=== PATIENT | female | born 1990 | race Caucasian/White ===

== ENCOUNTER → 2017-07-17 | Outpatient (CLI) | payer SELFPAY ==
[2017-07-17 14:32] LABS: BASO # 0.1 10^3/uL (0.0-0.2); BASO % 0.6 % (0.0-1.0); EOS % 0.5 % (0.0-3.0); IMMATURE GRANULOCYTE % 0.4 % (0-0); LYMPH # 1.8 10^3/uL (1.5-6.5); LYMPH % 22.8 % (24.0-44.0); MEAN CORPUSCULAR HEMOGLOBIN 33.6 pg (27.0-33.0); MEAN CORPUSCULAR HGB CONC 35.3 g/dl (32.0-36.5); MEAN CORPUSCULAR VOLUME 95.1 fl (80.0-96.0); MONO # 0.5 10^3/uL (0.0-0.8); MONO % 5.9 % (0.0-5.0); NEUTROPHILS # 5.4 10^3/uL (1.8-7.7); NEUTROPHILS % 69.8 % (36.0-66.0); PLATELET COUNT, AUTOMATED 225 10^3/uL (150-450); RED CELL DISTRIBUTION WIDTH 13.1 % (11.5-14.5); WHITE BLOOD COUNT 7.8 10^3/uL (4.0-10.0)
[2017-07-17 15:07] LABS: ALBUMIN 4.1 GM/DL (3.2-5.2); ALBUMIN/GLOBULIN RATIO 1.24 (1.00-1.93); ALKALINE PHOSPHATASE 48 U/L (45-117); ALT/SGPT 14 U/L (12-78); ANION GAP 6 MEQ/L (8-16); AST/SGOT 9 U/L (7-37); BILIRUBIN,TOTAL 0.6 MG/DL (0.2-1.0); BLOOD UREA NITROGEN 10 MG/DL (7-18); CALCIUM LEVEL 9.3 MG/DL (8.5-10.1); CARBON DIOXIDE LEVEL 28 MEQ/L (21-32); CHLORIDE LEVEL 104 MEQ/L (98-107); CREATININE FOR GFR 0.75 MG/DL (0.55-1.02); FREE T4 0.93 NG/DL (0.76-1.46); GLOMERULAR FILTRATION RATE > 60.0 (>60); GLUCOSE, FASTING 87 MG/DL (70-105); POTASSIUM SERUM 4.1 MEQ/L (3.5-5.1); SODIUM LEVEL 138 MEQ/L (136-145); TOTAL PROTEIN 7.4 GM/DL (6.4-8.2)
[2017-07-22 00:06] LABS: ARSENIC BLOOD 4 ug/L (2-23); LEAD BLOOD None Detected ug/dL (0-19); MERCURY BLOOD None Detected ug/L (0.0-14.9)
== END ==
LOC: M LAB 13:48
PROVIDERS: ATTEND Physician Assistant
DX: M54.5 Low back pain (principal)

== ENCOUNTER → 2020-08-24 | Outpatient (REF) | payer OTHER, SELFPAY ==
[2020-08-25 12:56] LABS: INFLUENZA A AMPLIFICATION NEGATIVE (NEGATIVE); INFLUENZA B AMPLIFICATION NEGATIVE (NEGATIVE)
== END ==
LOC: M LAB REF 09:55
PROVIDERS: ATTEND Physician Assistant
DX: R19.7 Diarrhea, unspecified (principal); J11.1 Influenza due to unidentified influenza virus with other respiratory manifestations; R53.83 Other fatigue; R11.0 Nausea
CPT/HCPCS: 87502; U0003

== ENCOUNTER 2023-01-21 13:47 | Inpatient (IN) | payer OTHER, SELFPAY ==
[~2023-01-21] VITALS: Ht 162.6 cm; Wt 73.8 kg
[2023-01-21] MEDS ORDERED: NORA0.35 PO (14:02)
[2023-01-21] MEDS ORDERED: LANTINJ4 SC (14:05)
[2023-01-21] MEDS ORDERED: NOVOINJ3 SC (14:05)
[2023-01-21 14:52] LABS: BASO % 0.5 % (0.0-1.0); EOS % 0.3 % (0.0-3.0); HEMOGLOBIN 14.6 g/dl (12.0-15.5); LYMPH # 0.8 10^3/uL (1.5-5.0); LYMPH % 10.7 % (24.0-44.0); MEAN CORPUSCULAR HEMOGLOBIN 36.4 pg (27.0-33.0); MEAN CORPUSCULAR HGB CONC 36.5 g/dl (32.0-36.5); MEAN CORPUSCULAR VOLUME 99.8 fl (80.0-96.0); MONO # 0.5 10^3/uL (0.0-0.8); MONO % 7.2 % (2.0-8.0); NEUTROPHILS % 80.9 % (36.0-66.0); PLATELET COUNT, AUTOMATED 154 10^3/uL (150-450); RED BLOOD COUNT 4.01 10^6/uL (4.00-5.40); WHITE BLOOD COUNT 7.4 10^3/uL (4.0-10.0)
[2023-01-21 15:16] LABS: ALBUMIN 4.4 G/DL (3.2-5.2); ALKALINE PHOSPHATASE 84 U/L (46-116); ALT/SGPT 76 U/L (7.0-40); AST/SGOT 172 U/L (<34); BILIRUBIN,DIRECT 0.4 MG/DL (<0.4); BILIRUBIN,TOTAL 1.3 MG/DL (0.3-1.2); BLOOD UREA NITROGEN 7 MG/DL (9-23); CALCIUM LEVEL 9.6 MG/DL (8.5-10.1); CARBON DIOXIDE LEVEL 24 MMOL/L (20-31); CHLORIDE LEVEL 98 MMOL/L (98-107); CREATININE FOR GFR 0.64 MG/DL (0.55-1.30); GLOMERULAR FILTRATION RATE > 60.0 (>60); GLUCOSE, FASTING 86 MG/DL (60-100); MAGNESIUM LEVEL 1.5 MG/DL (1.8-2.4); PHOSPHORUS LEVEL 1.8 MG/DL (2.5-4.9); POTASSIUM SERUM 4.2 MMOL/L (3.5-5.1); SODIUM LEVEL 133 MMOL/L (136-145); TOTAL PROTEIN 7.3 G/DL (5.7-8.2)
[2023-01-21] MEDS: fentaNYL 100 MCG/2 ML INJECTION IV PRN ×2 (15:26→18:31)
[2023-01-21 15:35] LABS: HCG, SERUM QUALITATIVE NEGATIVE (NEGATIVE)
[2023-01-21 15:37] LABS: AMPHETAMINES LEVEL URINE NEGATIVE (NEGATIVE); BARBITURATES URINE NEGATIVE (NEGATIVE); BENZODIAZEPINES URINE NEGATIVE (NEGATIVE); CANNABINOIDS URINE NEGATIVE (NEGATIVE); COCAINE METABOLITE URINE NEGATIVE (NEGATIVE); METHADONE URINE NEGATIVE (NEGATIVE); OPIATES URINE NEGATIVE (NEGATIVE); PHENCYCLIDINE URINE NEGATIVE (NEGATIVE)
[2023-01-21 15:38] LABS: CPK CREATINE PHOSPHOKINASE 254 U/L (34-145)
[2023-01-21 16:03] LABS: ETHYL ALCOHOL (ETHANOL) < 0.003 % (0.000-0.010)
[2023-01-21] MEDS: LORazepam 2 MG TAB PO PRN (16:04)
[2023-01-21] MEDS ORDERED: MAG SULF 1GM/100ML (MAG RUN) 1 GM in IV 1 EA IV ONE (16:15)
[2023-01-21] MEDS ORDERED: LORazepam 2 MG/ML 1ML VIAL IV STA (16:29)
[2023-01-21] MEDS ORDERED: GLUCAGON INJ 1MG VIAL SC PRN (17:05)
[2023-01-21] MEDS ORDERED: DEXTROSE 50% 50ML SYRINGE IV PRN (17:05)
[2023-01-21] MEDS ORDERED: GLUCOSE 4GM CHEW TABLET PO PRN (17:05)
[2023-01-21] MEDS ORDERED: ACET-897 PO (17:31)
[2023-01-21] MEDS ORDERED: HOME MED LIST COMPLETE! XX SCH (17:35)
[2023-01-21] MEDS: INSULIN LISPRO (NovoLOG) PER UNIT SC SCH (18:30)
[2023-01-21 19:23] LABS: RSV AMPLIFICATION NEGATIVE (NEGATIVE)
[2023-01-21] MEDS ORDERED: ACETAMINOPHEN 500 MG TAB PO ONE (23:25)
[2023-01-21] MEDS ORDERED: CYCLOBENZAPRINE 5MG TABLET PO ONE (23:25)
[2023-01-22] MEDS: INSULIN LISPRO (NovoLOG) PER UNIT SC SCH ×5 (00:30→21:00)
[2023-01-22] MEDS ORDERED: LIDOCAINE 5% (LIDODERM) PATCH TD ONE (01:00)
[2023-01-22] MEDS: THIAMINE 100 MG TAB PO SCH ×3 (01:21→20:34)
[2023-01-22] MEDS: OXAZEPAM 10MG CAP PO SCH ×3 (06:00→21:54)
[2023-01-22 06:11] LABS: HEMATOCRIT 38.9 % (36.0-47.0); HEMOGLOBIN 13.7 g/dl (12.0-15.5); MEAN CORPUSCULAR HEMOGLOBIN 36.2 pg (27.0-33.0); MEAN CORPUSCULAR HGB CONC 35.2 g/dl (32.0-36.5); MEAN CORPUSCULAR VOLUME 102.9 fl (80.0-96.0); PLATELET COUNT, AUTOMATED 125 10^3/uL (150-450); RED BLOOD COUNT 3.78 10^6/uL (4.00-5.40); WHITE BLOOD COUNT 4.8 10^3/uL (4.0-10.0)
[2023-01-22 06:46] LABS: ALBUMIN 3.6 G/DL (3.2-5.2); ALKALINE PHOSPHATASE 83 U/L (46-116); ALT/SGPT 71 U/L (7.0-40); AST/SGOT 176 U/L (<34); BILIRUBIN,TOTAL 2.1 MG/DL (0.3-1.2); BLOOD UREA NITROGEN 7 MG/DL (9-23); CALCIUM LEVEL 9.2 MG/DL (8.5-10.1); CARBON DIOXIDE LEVEL 26 MMOL/L (20-31); CHLORIDE LEVEL 100 MMOL/L (98-107); CREATININE FOR GFR 0.73 MG/DL (0.55-1.30); GLOMERULAR FILTRATION RATE > 60.0 (>60); GLUCOSE, FASTING 131 MG/DL (60-100); MAGNESIUM LEVEL 1.8 MG/DL (1.8-2.4); SODIUM LEVEL 135 MMOL/L (136-145); TOTAL PROTEIN 6.5 G/DL (5.7-8.2)
[2023-01-22] MEDS ORDERED: FOLIC ACID 1MG TAB PO SCH (09:00)
[2023-01-22] MEDS ORDERED: MULTIVITAMINS/MINERALS THERAP 1 TAB PO SCH (09:00)
[2023-01-22] MEDS: LORazepam 2 MG TAB PO PRN (10:04)
[2023-01-22] MEDS: NS 1,000 ML IV SCH ×2 (10:05→16:41)
[2023-01-22 12:55] VITALS: BP 138/70
[2023-01-22] MEDS ORDERED: LORazepam 1 MG TAB PO PRN (13:00)
[2023-01-22 13:19] VITALS: BP 138/70
[2023-01-22 16:37] VITALS: BP 145/88
[2023-01-22] MEDS: PERCOCET 5MG/325MG TAB PO PRN ×2 (16:42→20:34)
[2023-01-22 19:35] VITALS: BP 141/74
[2023-01-22 20:32] VITALS: BP 141/74
[2023-01-23] MEDS: PERCOCET 5MG/325MG TAB PO PRN ×3 (00:32→09:16)
[2023-01-23 00:34] VITALS: BP 143/65
[2023-01-23 05:09] VITALS: BP 136/87
[2023-01-23] MEDS: OXAZEPAM 10MG CAP PO SCH (05:13)
[2023-01-23] MEDS: NS 1,000 ML IV SCH (05:14)
[2023-01-23 05:21] VITALS: BP 136/87
[2023-01-23 07:37] LABS: HEMATOCRIT 35.1 % (36.0-47.0); HEMOGLOBIN 12.4 g/dl (12.0-15.5); MEAN CORPUSCULAR HEMOGLOBIN 36.6 pg (27.0-33.0); MEAN CORPUSCULAR HGB CONC 35.3 g/dl (32.0-36.5); MEAN CORPUSCULAR VOLUME 103.5 fl (80.0-96.0); PLATELET COUNT, AUTOMATED 104 10^3/uL (150-450); RED BLOOD COUNT 3.39 10^6/uL (4.00-5.40); WHITE BLOOD COUNT 3.4 10^3/uL (4.0-10.0)
[2023-01-23 08:00] VITALS: BP 154/95
[2023-01-23 08:19] LABS: ALBUMIN 3.3 G/DL (3.2-5.2); ALKALINE PHOSPHATASE 74 U/L (46-116); ALT/SGPT 73 U/L (7.0-40); AST/SGOT 162 U/L (<34); BILIRUBIN,TOTAL 1.4 MG/DL (0.3-1.2); BLOOD UREA NITROGEN 6 MG/DL (9-23); CALCIUM LEVEL 8.1 MG/DL (8.5-10.1); CARBON DIOXIDE LEVEL 22 MMOL/L (20-31); CHLORIDE LEVEL 104 MMOL/L (98-107); CREATININE FOR GFR 0.65 MG/DL (0.55-1.30); GLOMERULAR FILTRATION RATE > 60.0 (>60); GLUCOSE, FASTING 141 MG/DL (60-100); SODIUM LEVEL 137 MMOL/L (136-145); TOTAL PROTEIN 5.9 G/DL (5.7-8.2)
[2023-01-23] MEDS: INSULIN LISPRO (NovoLOG) PER UNIT SC SCH (08:25)
[2023-01-23] MEDS: THIAMINE 100 MG TAB PO SCH (08:25)
[2023-01-23] MEDS ORDERED: MULTIVITAMINS/MINERALS THERAP 1 TAB PO SCH (09:00)
[2023-01-23] MEDS ORDERED: FOLIC ACID 1MG TAB PO SCH (09:00)
[2023-01-23] MEDS ORDERED: CEFDINIR 300 MG CAP (OMNICEF) PO SCH (09:00)
[2023-01-23] MEDS ORDERED: CEFD300CAP PO (10:27)
[2023-01-23] MEDS ORDERED: VITMTA PO (10:27)
[2023-01-23] MEDS ORDERED: THIA100TA PO (10:27)
[2023-01-23] MEDS ORDERED: FOLI1TAB11 PO (10:27)
== END 2023-01-23 10:51 | disposition home or self-care (01) | DRG 897 ==
LOC: M ED 13:47 → EDBD 13:47 → M ED INP 17:05 → ENRESERV 01-22 11:07 → M MS4PR 01-22 12:50
PROVIDERS: ADMIT Internal Medicine; ATTEND Internal Medicine
DX: F10.139 Alcohol abuse with withdrawal, unspecified (principal); N39.0 Urinary tract infection, site not specified; R56.9 Unspecified convulsions; E11.9 Type 2 diabetes mellitus without complications; F43.10 Post-traumatic stress disorder, unspecified; R74.01 Elevation of levels of liver transaminase levels; E83.42 Hypomagnesemia; E87.6 Hypokalemia; Z79.4 Long term (current) use of insulin; Z79.899 Other long term (current) drug therapy; Z88.6 Allergy status to analgesic agent

== ENCOUNTER 2023-04-27 16:51 | Emergency (ER) | payer OTHER ==
[~2023-04-27] VITALS: Ht 160 cm; Wt 76.0 kg
[~2023-04-27 16:51] MED LIST: ACET-897 PO; CEFD300CAP PO; FOLI1TAB11 PO; LANTINJ4 SC; NORA0.35 PO; NOVOINJ3 SC; THIA100TA PO; VITMTA PO
[2023-04-27 19:52] LABS: BASO % 0.8 % (0.0-1.0); EOS # 0.1 10^3/uL (0.0-0.5); EOS % 1.9 % (0.0-3.0); HEMATOCRIT 43.4 % (36.0-47.0); HEMOGLOBIN 15.6 g/dl (12.0-15.5); LYMPH % 19.8 % (24.0-44.0); MEAN CORPUSCULAR HEMOGLOBIN 36.6 pg (27.0-33.0); MEAN CORPUSCULAR HGB CONC 35.9 g/dl (32.0-36.5); MEAN CORPUSCULAR VOLUME 101.9 fl (80.0-96.0); MONO # 0.4 10^3/uL (0.0-0.8); MONO % 8.3 % (2.0-8.0); NEUTROPHILS # 3.6 10^3/uL (1.5-8.5); PLATELET COUNT, AUTOMATED 140 10^3/uL (150-450); RED BLOOD COUNT 4.26 10^6/uL (4.00-5.40); WHITE BLOOD COUNT 5.2 10^3/uL (4.0-10.0)
[2023-04-27] MEDS ORDERED: fentaNYL 100 MCG/2 ML INJECTION IV ONE ×2 (19:55→21:25)
[2023-04-27] MEDS ORDERED: NS 1,000 ML IV ONE (19:55)
[2023-04-27 20:08] LABS: HCG, SERUM QUALITATIVE NEGATIVE (NEGATIVE)
[2023-04-27 20:19] LABS: LIPASE 49 U/L (12-53)
[2023-04-27 20:21] LABS: ALBUMIN 4.3 G/DL (3.2-5.2); ALKALINE PHOSPHATASE 106 U/L (46-116); ALT/SGPT 130 U/L (7.0-40); AST/SGOT 114 U/L (<34); BILIRUBIN,DIRECT 0.9 MG/DL (<0.4); BILIRUBIN,TOTAL 2.5 MG/DL (0.3-1.2); BLOOD UREA NITROGEN 8 MG/DL (9-23); CALCIUM LEVEL 9.3 MG/DL (8.5-10.1); CARBON DIOXIDE LEVEL 23 MMOL/L (20-31); CHLORIDE LEVEL 99 MMOL/L (98-107); CREATININE FOR GFR 0.59 MG/DL (0.55-1.30); GLOMERULAR FILTRATION RATE > 60.0 (>60); GLUCOSE, FASTING 258 MG/DL (60-100); POTASSIUM SERUM 4.3 MMOL/L (3.5-5.1); SODIUM LEVEL 134 MMOL/L (136-145); TOTAL PROTEIN 7.5 G/DL (5.7-8.2)
[2023-04-27 23:02] VITALS: TEMP 98.9
[2023-04-27] MEDS ORDERED: NORCO, ANEXSIA 5/325MG TABLET (HYDROcodone/ACETAMINOPHEN) PO ONE (23:15)
[2023-04-27] MEDS ORDERED: BACTRIM 160MG/800MG DS TAB PO ONE (23:15)
[2023-04-27] MEDS ORDERED: HYDR-3713 PO (23:18)
[2023-04-27] MEDS ORDERED: BACT800T5 PO (23:18)
[2023-04-27] MEDS ORDERED: ONDA4TAB6 PO (23:18)
[2023-04-28 00:12] VITALS: BP 157/87; O2SAT 98
== END 2023-04-28 00:15 | disposition home or self-care (01) ==
LOC: M ED 16:51
DX: K86.1 Other chronic pancreatitis (principal); N39.0 Urinary tract infection, site not specified; M54.50 Low back pain, unspecified; F43.10 Post-traumatic stress disorder, unspecified; E11.9 Type 2 diabetes mellitus without complications; I10 Essential (primary) hypertension; G40.909 Epilepsy, unspecified, not intractable, without status epilepticus; K21.9 Gastro-esophageal reflux disease without esophagitis; F10.10 Alcohol abuse, uncomplicated; Z88.6 Allergy status to analgesic agent; Z79.4 Long term (current) use of insulin; Z79.83 Long term (current) use of bisphosphonates; Z79.899 Other long term (current) drug therapy
CPT/HCPCS: 74176; 76705; 80048; 80076; 81001; 83690; 84703; 85025; 87088; 87186; 96361; 96374; 96375; 99284; J3010

== ENCOUNTER 2023-04-30 15:37 | Inpatient (IN) | payer OTHER ==
[~2023-04-30] VITALS: Ht 160 cm; Wt 78.5 kg
[~2023-04-30 15:37] MED LIST changes: +BACT800T5 PO; +HYDR-3713 PO; +ONDA4TAB6 PO
[2023-04-30 17:09] LABS: BASO # 0.1 10^3/uL (0.0-0.2); BASO % 0.6 % (0.0-1.0); EOS # 0.1 10^3/uL (0.0-0.5); EOS % 1.3 % (0.0-3.0); HEMATOCRIT 44.8 % (36.0-47.0); HEMOGLOBIN 15.9 g/dl (12.0-15.5); LYMPH # 1.1 10^3/uL (1.5-5.0); MEAN CORPUSCULAR HEMOGLOBIN 36.6 pg (27.0-33.0); MEAN CORPUSCULAR HGB CONC 35.5 g/dl (32.0-36.5); MONO % 12.8 % (2.0-8.0); NEUTROPHILS # 5.5 10^3/uL (1.5-8.5); NEUTROPHILS % 70.9 % (36.0-66.0); PLATELET COUNT, AUTOMATED 154 10^3/uL (150-450); RED BLOOD COUNT 4.35 10^6/uL (4.00-5.40); WHITE BLOOD COUNT 7.7 10^3/uL (4.0-10.0)
[2023-04-30 17:28] LABS: LIPASE 40 U/L (12-53)
[2023-04-30 17:37] LABS: ALBUMIN 4.5 G/DL (3.2-5.2); ALKALINE PHOSPHATASE 106 U/L (46-116); ALT/SGPT 76 U/L (7.0-40); AST/SGOT 45 U/L (<34); BILIRUBIN,DIRECT 0.5 MG/DL (<0.4); BILIRUBIN,TOTAL 1.1 MG/DL (0.3-1.2); BLOOD UREA NITROGEN 7 MG/DL (9-23); CALCIUM LEVEL 10.1 MG/DL (8.5-10.1); CARBON DIOXIDE LEVEL 17 MMOL/L (20-31); CHLORIDE LEVEL 98 MMOL/L (98-107); CREATININE FOR GFR 0.57 MG/DL (0.55-1.30); GLOMERULAR FILTRATION RATE > 60.0 (>60); GLUCOSE, FASTING 141 MG/DL (60-100); POTASSIUM SERUM 3.5 MMOL/L (3.5-5.1); SODIUM LEVEL 135 MMOL/L (136-145)
[2023-04-30] MEDS ORDERED: ONDANSETRON 4MG 2ML VIAL IV ONE (18:45)
[2023-04-30] MEDS ORDERED: NS 1,000 ML IV ONE (18:45)
[2023-04-30] MEDS ORDERED: PANTOPRAZOLE 40MG VIAL IV ONE (18:45)
[2023-04-30] MEDS ORDERED: fentaNYL 100 MCG/2 ML INJECTION IV PRN (18:45)
[2023-04-30 19:13] LABS: VENOUS BASE EXCESS -7.1 (-2.0-2.0); VENOUS HCO3 17.3 MMOL/L (23.0-27.0); VENOUS O2 SATURATION 79.9 % (60.0-80.0); VENOUS PARTIAL PRESSURE CO2 32.4 mmHg (38.0-50.0); VENOUS PARTIAL PRESSURE O2 44.2 mmHg (30.0-50.0); VENOUS PH 7.345 UNITS (7.330-7.430); VENOUS STANDARD HCO3 18.4 MMOL/L; VENOUS TOTAL CO2 18.3 MMOL/L (24.0-28.0)
[2023-04-30 19:52] LABS: HCG, SERUM QUALITATIVE NEGATIVE (NEGATIVE)
[2023-04-30] MEDS ORDERED: ISOVUE-370 76% 100ML VIAL As Ordered ONE (19:57)
[2023-04-30] MEDS: HYDROMORPHONE HCL 0.5 MG/ 0.5 ML SYRINGE IV PRN ×2 (20:17→22:56)
[2023-05-01] VITALS (12 sets, daily range): BP systolic 129–164; BP diastolic 62–80; TEMP 97.3–98.6; O2SAT 95–100
[2023-05-01] MEDS ORDERED: LR 1,000 ML IV SCH (00:35)
[2023-05-01] MEDS ORDERED: ONDANSETRON 4MG 2ML VIAL IV PRN (00:40)
[2023-05-01] MEDS ORDERED: GLUCAGON INJ 1MG VIAL SC PRN (00:40)
[2023-05-01] MEDS ORDERED: DEXTROSE 50% 50ML SYRINGE IV PRN (00:40)
[2023-05-01] MEDS ORDERED: GLUCOSE 4GM CHEW TABLET PO PRN (00:40)
[2023-05-01 00:49] LABS: RSV AMPLIFICATION NEGATIVE (NEGATIVE)
[2023-05-01] MEDS: HYDROMORPHONE HCL 0.5 MG/ 0.5 ML SYRINGE IV PRN ×8 (01:11→22:02)
[2023-05-01] MEDS ORDERED: LORazepam 2 MG/ML 1ML VIAL IV PRN (02:15)
[2023-05-01] MEDS ORDERED: INSU100I36 SC (02:38)
[2023-05-01] MEDS: LR 1,000 ML IV SCH ×3 (02:58→17:17)
[2023-05-01] MEDS ORDERED: MORPHINE 4 MG/ML 1ML VIAL IV ONE ×3 (03:00→20:55)
[2023-05-01] MEDS ORDERED: HYDR-4571 PO (03:16)
[2023-05-01] MEDS ORDERED: ONDA4TAB6 PO (03:16)
[2023-05-01] MEDS ORDERED: CYCL-707 PO (03:16)
[2023-05-01] MEDS ORDERED: BACT800T5 PO (03:16)
[2023-05-01] MEDS ORDERED: LISI10TA22 PO (03:27)
[2023-05-01] MEDS ORDERED: GLUT40GE PO (03:27)
[2023-05-01] MEDS ORDERED: REFR0.5D8 OU (03:27)
[2023-05-01] MEDS ORDERED: ATOR1TAB21 PO (03:27)
[2023-05-01] MEDS ORDERED: NORA0.35 PO (03:27)
[2023-05-01] MEDS ORDERED: HOME MED LIST COMPLETE! XX SCH (03:30)
[2023-05-01 04:15] LABS: BASO % 0.7 % (0.0-1.0); EOS # 0.2 10^3/uL (0.0-0.5); HEMATOCRIT 36.8 % (36.0-47.0); LYMPH # 1.3 10^3/uL (1.5-5.0); LYMPH % 24.1 % (24.0-44.0); MEAN CORPUSCULAR HEMOGLOBIN 36.9 pg (27.0-33.0); MEAN CORPUSCULAR HGB CONC 36.1 g/dl (32.0-36.5); MEAN CORPUSCULAR VOLUME 102.2 fl (80.0-96.0); MONO # 0.8 10^3/uL (0.0-0.8); MONO % 15.6 % (2.0-8.0); NEUTROPHILS % 56.2 % (36.0-66.0); PLATELET COUNT, AUTOMATED 125 10^3/uL (150-450); WHITE BLOOD COUNT 5.4 10^3/uL (4.0-10.0)
[2023-05-01 04:26] LABS: HEMOGLOBIN 13.3 g/dl (12.0-15.5)
[2023-05-01 04:43] LABS: ALBUMIN 3.6 G/DL (3.2-5.2); ALKALINE PHOSPHATASE 80 U/L (46-116); ALT/SGPT 58 U/L (7.0-40); AST/SGOT 33 U/L (<34); BLOOD UREA NITROGEN 7 MG/DL (9-23); CALCIUM LEVEL 9.2 MG/DL (8.5-10.1); CARBON DIOXIDE LEVEL 23 MMOL/L (20-31); CHLORIDE LEVEL 103 MMOL/L (98-107); GLOMERULAR FILTRATION RATE > 60.0 (>60); GLUCOSE, FASTING 147 MG/DL (60-100); POTASSIUM SERUM 3.5 MMOL/L (3.5-5.1); SODIUM LEVEL 136 MMOL/L (136-145); TOTAL PROTEIN 6.5 G/DL (5.7-8.2)
[2023-05-01] MEDS: INSULIN LISPRO (NovoLOG) PER UNIT SC SCH ×3 (06:00→17:17)
[2023-05-01] MEDS: PANTOPRAZOLE 40MG VIAL IV SCH ×2 (09:03→21:15)
[2023-05-01] MEDS: THIAMINE 200MG 2ML VIAL IM SCH (09:04)
[2023-05-01] MEDS: LEVEMIR (INSULIN DETEMIR) 1 UNITS/0.01ML SC SCH (09:04)
[2023-05-01] MEDS ORDERED: cefTRIAXone SOD 1 GM in D5W MINI-BAG PLUS 50 ML IV SCH (12:00)
[2023-05-02] VITALS (9 sets, daily range): BP systolic 128–157; BP diastolic 71–98; TEMP 96.6–98; O2SAT 93–97
[2023-05-02] MEDS: LR 1,000 ML IV SCH ×2 (01:06→09:01)
[2023-05-02] MEDS: HYDROMORPHONE HCL 0.5 MG/ 0.5 ML SYRINGE IV PRN ×8 (01:10→23:12)
[2023-05-02 05:45] LABS: EOS # 0.2 10^3/uL (0.0-0.5); EOS % 4.2 % (0.0-3.0); HEMATOCRIT 36.9 % (36.0-47.0); HEMOGLOBIN 13.1 g/dl (12.0-15.5); LYMPH # 1.3 10^3/uL (1.5-5.0); LYMPH % 34.9 % (24.0-44.0); MEAN CORPUSCULAR HEMOGLOBIN 36.7 pg (27.0-33.0); MEAN CORPUSCULAR HGB CONC 35.5 g/dl (32.0-36.5); MEAN CORPUSCULAR VOLUME 103.4 fl (80.0-96.0); MONO # 0.6 10^3/uL (0.0-0.8); MONO % 15.6 % (2.0-8.0); NEUTROPHILS # 1.7 10^3/uL (1.5-8.5); PLATELET COUNT, AUTOMATED 126 10^3/uL (150-450); RED BLOOD COUNT 3.57 10^6/uL (4.00-5.40); WHITE BLOOD COUNT 3.8 10^3/uL (4.0-10.0)
[2023-05-02] MEDS: INSULIN LISPRO (NovoLOG) PER UNIT SC SCH ×5 (06:00→23:48)
[2023-05-02 06:16] LABS: ALBUMIN 3.4 G/DL (3.2-5.2); ALKALINE PHOSPHATASE 70 U/L (46-116); ALT/SGPT 57 U/L (7.0-40); AST/SGOT 46 U/L (<34); BILIRUBIN,TOTAL 0.8 MG/DL (0.3-1.2); BLOOD UREA NITROGEN < 5 MG/DL (9-23); CALCIUM LEVEL 8.8 MG/DL (8.5-10.1); CARBON DIOXIDE LEVEL 27 MMOL/L (20-31); CHLORIDE LEVEL 102 MMOL/L (98-107); GLOMERULAR FILTRATION RATE > 60.0 (>60); GLUCOSE, FASTING 134 MG/DL (60-100); MAGNESIUM LEVEL 1.1 MG/DL (1.8-2.4); POTASSIUM SERUM 3.5 MMOL/L (3.5-5.1); SODIUM LEVEL 138 MMOL/L (136-145)
[2023-05-02] MEDS: MAG SULF 1GM/100ML (MAG RUN) 1 GM in IV 1 EA IV SCH ×4 (07:27→11:35)
[2023-05-02] MEDS: LEVEMIR (INSULIN DETEMIR) 1 UNITS/0.01ML SC SCH (08:58)
[2023-05-02] MEDS: PANTOPRAZOLE 40MG VIAL IV SCH ×2 (08:59→20:12)
[2023-05-02] MEDS: THIAMINE 200MG 2ML VIAL IM SCH (08:59)
[2023-05-02] MEDS ORDERED: HYDROMORPHONE HCL 0.5 MG/ 0.5 ML SYRINGE IV PRN (09:30)
[2023-05-02] MEDS: CEFDINIR 300 MG CAP (OMNICEF) PO SCH ×2 (10:24→20:12)
[2023-05-03] MEDS: HYDROMORPHONE HCL 0.5 MG/ 0.5 ML SYRINGE IV PRN ×7 (02:32→23:30)
[2023-05-03 03:13] VITALS: BP 126/78; TEMP 97.8; O2SAT 98
[2023-05-03] MEDS: INSULIN LISPRO (NovoLOG) PER UNIT SC SCH ×4 (05:16→23:40)
[2023-05-03 05:18] LABS: BASO % 0.9 % (0.0-1.0); EOS # 0.1 10^3/uL (0.0-0.5); EOS % 3.6 % (0.0-3.0); HEMATOCRIT 36.4 % (36.0-47.0); HEMOGLOBIN 12.5 g/dl (12.0-15.5); LYMPH # 1.3 10^3/uL (1.5-5.0); LYMPH % 38.3 % (24.0-44.0); MEAN CORPUSCULAR HEMOGLOBIN 36.5 pg (27.0-33.0); MEAN CORPUSCULAR HGB CONC 34.3 g/dl (32.0-36.5); MEAN CORPUSCULAR VOLUME 106.4 fl (80.0-96.0); MONO # 0.5 10^3/uL (0.0-0.8); NEUTROPHILS # 1.4 10^3/uL (1.5-8.5); NEUTROPHILS % 40.9 % (36.0-66.0); PLATELET COUNT, AUTOMATED 126 10^3/uL (150-450); RED BLOOD COUNT 3.42 10^6/uL (4.00-5.40); WHITE BLOOD COUNT 3.3 10^3/uL (4.0-10.0)
[2023-05-03 05:38] LABS: ALBUMIN 3.4 G/DL (3.2-5.2); ALKALINE PHOSPHATASE 66 U/L (46-116); ALT/SGPT 51 U/L (7.0-40); AST/SGOT 40 U/L (<34); BILIRUBIN,TOTAL 0.6 MG/DL (0.3-1.2); BLOOD UREA NITROGEN < 5 MG/DL (9-23); CALCIUM LEVEL 8.9 MG/DL (8.5-10.1); CARBON DIOXIDE LEVEL 28 MMOL/L (20-31); CHLORIDE LEVEL 100 MMOL/L (98-107); CREATININE FOR GFR 0.47 MG/DL (0.55-1.30); GLOMERULAR FILTRATION RATE > 60.0 (>60); GLUCOSE, FASTING 245 MG/DL (60-100); MAGNESIUM LEVEL 1.4 MG/DL (1.8-2.4); POTASSIUM SERUM 3.6 MMOL/L (3.5-5.1); SODIUM LEVEL 136 MMOL/L (136-145)
[2023-05-03 08:04] VITALS: BP 152/92; TEMP 98.1; O2SAT 97
[2023-05-03] MEDS: LEVEMIR (INSULIN DETEMIR) 1 UNITS/0.01ML SC SCH (08:09)
[2023-05-03] MEDS: MAG SULF 1GM/100ML (MAG RUN) 1 GM in IV 1 EA IV SCH ×2 (08:10→09:52)
[2023-05-03] MEDS: CEFDINIR 300 MG CAP (OMNICEF) PO SCH ×2 (08:10→20:06)
[2023-05-03] MEDS: PANTOPRAZOLE 40MG TAB (PROTONIX) PO SCH (08:10)
[2023-05-03] MEDS: ACETAMINOPHEN 500 MG TAB PO SCH ×4 (08:10→23:27)
[2023-05-03] MEDS: THIAMINE 200MG 2ML VIAL IM SCH (08:11)
[2023-05-03] MEDS: LIDOCAINE 5% (LIDODERM) PATCH TD SCH (08:11)
[2023-05-03] MEDS ORDERED: HYDROmorphone 4MG TABLET PO PRN (08:40)
[2023-05-03] MEDS ORDERED: ISOVUE-370 76% 100ML VIAL As Ordered ONE (09:02)
[2023-05-03] MEDS: LR 1,000 ML IV SCH ×2 (11:39→18:00)
[2023-05-03 12:17] VITALS: BP 135/76; TEMP 97.3; O2SAT 97
[2023-05-03 16:12] VITALS: BP 142/77; TEMP 97.1; O2SAT 96
[2023-05-03 19:22] VITALS: BP 146/79; TEMP 97.4; O2SAT 96
[2023-05-04] VITALS (10 sets, daily range): BP systolic 135–152; BP diastolic 74–88; TEMP 96.9–97.8; O2SAT 87–100
[2023-05-04] MEDS: HYDROMORPHONE HCL 0.5 MG/ 0.5 ML SYRINGE IV PRN ×8 (02:35→22:15)
[2023-05-04 05:13] LABS: BASO % 1.3 % (0.0-1.0); EOS # 0.2 10^3/uL (0.0-0.5); EOS % 4.9 % (0.0-3.0); HEMATOCRIT 36.2 % (36.0-47.0); HEMOGLOBIN 12.7 g/dl (12.0-15.5); LYMPH # 1.4 10^3/uL (1.5-5.0); LYMPH % 44.7 % (24.0-44.0); MEAN CORPUSCULAR HEMOGLOBIN 36.4 pg (27.0-33.0); MEAN CORPUSCULAR HGB CONC 35.1 g/dl (32.0-36.5); MEAN CORPUSCULAR VOLUME 103.7 fl (80.0-96.0); MONO # 0.6 10^3/uL (0.0-0.8); MONO % 18.1 % (2.0-8.0); NEUTROPHILS % 30.7 % (36.0-66.0); PLATELET COUNT, AUTOMATED 162 10^3/uL (150-450); RED BLOOD COUNT 3.49 10^6/uL (4.00-5.40)
[2023-05-04 05:26] LABS: NEUTROPHILS # 0.9 10^3/uL (1.5-8.5)
[2023-05-04 05:36] LABS: ALBUMIN 3.3 G/DL (3.2-5.2); ALKALINE PHOSPHATASE 66 U/L (46-116); ALT/SGPT 50 U/L (7.0-40); AST/SGOT 42 U/L (<34); BILIRUBIN,TOTAL 0.6 MG/DL (0.3-1.2); BLOOD UREA NITROGEN < 5 MG/DL (9-23); CALCIUM LEVEL 9.1 MG/DL (8.5-10.1); CARBON DIOXIDE LEVEL 32 MMOL/L (20-31); CHLORIDE LEVEL 102 MMOL/L (98-107); CREATININE FOR GFR 0.49 MG/DL (0.55-1.30); GLOMERULAR FILTRATION RATE > 60.0 (>60); GLUCOSE, FASTING 130 MG/DL (60-100); MAGNESIUM LEVEL 1.5 MG/DL (1.8-2.4); POTASSIUM SERUM 3.4 MMOL/L (3.5-5.1); SODIUM LEVEL 140 MMOL/L (136-145); TOTAL PROTEIN 5.9 G/DL (5.7-8.2)
[2023-05-04] MEDS: INSULIN LISPRO (NovoLOG) PER UNIT SC SCH ×4 (05:50→23:08)
[2023-05-04] MEDS: ACETAMINOPHEN 500 MG TAB PO SCH ×4 (06:11→23:08)
[2023-05-04] MEDS ORDERED: POTASSIUM CHLORIDE 10MEQ SR TABLET PO ONE (06:50)
[2023-05-04] MEDS: CEFDINIR 300 MG CAP (OMNICEF) PO SCH ×2 (08:36→20:13)
[2023-05-04] MEDS: ENOXAPARIN 40MG/0.4ML SYRINGE (J1650 PER 10MG) SC SCH (08:37)
[2023-05-04] MEDS: MAGNESIUM OXIDE 400MG TAB (MAG-OX) PO SCH ×3 (08:37→20:13)
[2023-05-04] MEDS: LEVEMIR (INSULIN DETEMIR) 1 UNITS/0.01ML SC SCH (08:37)
[2023-05-04] MEDS: PANTOPRAZOLE 40MG TAB (PROTONIX) PO SCH (08:37)
[2023-05-04] MEDS: LIDOCAINE 5% (LIDODERM) PATCH TD SCH (08:38)
[2023-05-05] VITALS (12 sets, daily range): BP systolic 138–159; BP diastolic 74–97; TEMP 97.1–98; O2SAT 91–99
[2023-05-05] MEDS: HYDROMORPHONE HCL 0.5 MG/ 0.5 ML SYRINGE IV PRN ×5 (00:20→22:35)
[2023-05-05] MEDS: INSULIN LISPRO (NovoLOG) PER UNIT SC SCH ×4 (05:10→17:29)
[2023-05-05] MEDS: ACETAMINOPHEN 500 MG TAB PO SCH ×4 (05:22→23:49)
[2023-05-05 05:42] LABS: BASO # 0.1 10^3/uL (0.0-0.2); BASO % 1.7 % (0.0-1.0); EOS # 0.1 10^3/uL (0.0-0.5); HEMATOCRIT 38.8 % (36.0-47.0); HEMOGLOBIN 13.5 g/dl (12.0-15.5); LYMPH # 1.2 10^3/uL (1.5-5.0); LYMPH % 35.3 % (24.0-44.0); MEAN CORPUSCULAR HEMOGLOBIN 36.6 pg (27.0-33.0); MEAN CORPUSCULAR HGB CONC 34.8 g/dl (32.0-36.5); MEAN CORPUSCULAR VOLUME 105.1 fl (80.0-96.0); MONO # 0.5 10^3/uL (0.0-0.8); MONO % 14.2 % (2.0-8.0); NEUTROPHILS # 1.6 10^3/uL (1.5-8.5); NEUTROPHILS % 44.5 % (36.0-66.0); PLATELET COUNT, AUTOMATED 212 10^3/uL (150-450); RED BLOOD COUNT 3.69 10^6/uL (4.00-5.40); WHITE BLOOD COUNT 3.5 10^3/uL (4.0-10.0)
[2023-05-05 05:56] LABS: ALBUMIN 3.3 G/DL (3.2-5.2); ALKALINE PHOSPHATASE 85 U/L (46-116); ALT/SGPT 62 U/L (7.0-40); AST/SGOT 64 U/L (<34); BILIRUBIN,TOTAL 0.5 MG/DL (0.3-1.2); BLOOD UREA NITROGEN < 5 MG/DL (9-23); CARBON DIOXIDE LEVEL 28 MMOL/L (20-31); CHLORIDE LEVEL 101 MMOL/L (98-107); CREATININE FOR GFR 0.51 MG/DL (0.55-1.30); GLOMERULAR FILTRATION RATE > 60.0 (>60); GLUCOSE, FASTING 235 MG/DL (60-100); MAGNESIUM LEVEL 1.5 MG/DL (1.8-2.4); POTASSIUM SERUM 4.1 MMOL/L (3.5-5.1); SODIUM LEVEL 138 MMOL/L (136-145)
[2023-05-05] MEDS: LEVEMIR (INSULIN DETEMIR) 1 UNITS/0.01ML SC SCH (08:35)
[2023-05-05] MEDS: CEFDINIR 300 MG CAP (OMNICEF) PO SCH ×2 (08:37→20:13)
[2023-05-05] MEDS: MAGNESIUM OXIDE 400MG TAB (MAG-OX) PO SCH ×3 (08:37→20:13)
[2023-05-05] MEDS: ENOXAPARIN 40MG/0.4ML SYRINGE (J1650 PER 10MG) SC SCH ×2 (08:37→08:48)
[2023-05-05] MEDS: PANTOPRAZOLE 40MG TAB (PROTONIX) PO SCH (08:37)
[2023-05-05] MEDS: LIDOCAINE 5% (LIDODERM) PATCH TD SCH (08:38)
[2023-05-05] MEDS ORDERED: oxyCODONE 5MG TAB PO PRN (16:05)
[2023-05-05] MEDS ORDERED: INSULIN LISPRO (NovoLOG) PER UNIT SC SCH (21:00)
[2023-05-06] VITALS (8 sets, daily range): BP systolic 131–153; BP diastolic 62–95; TEMP 96.3–97.2; O2SAT 96–98
[2023-05-06] MEDS: oxyCODONE 5MG TAB PO PRN ×4 (02:07→16:02)
[2023-05-06] MEDS: ACETAMINOPHEN 500 MG TAB PO SCH ×2 (06:16→11:12)
[2023-05-06 07:27] LABS: BASO # 0.1 10^3/uL (0.0-0.2); BASO % 2.2 % (0.0-1.0); EOS # 0.2 10^3/uL (0.0-0.5); EOS % 3.3 % (0.0-3.0); HEMATOCRIT 40.6 % (36.0-47.0); HEMOGLOBIN 14.3 g/dl (12.0-15.5); LYMPH # 1.8 10^3/uL (1.5-5.0); LYMPH % 40.2 % (24.0-44.0); MEAN CORPUSCULAR HEMOGLOBIN 36.6 pg (27.0-33.0); MEAN CORPUSCULAR HGB CONC 35.2 g/dl (32.0-36.5); MEAN CORPUSCULAR VOLUME 103.8 fl (80.0-96.0); MONO # 0.6 10^3/uL (0.0-0.8); MONO % 13.8 % (2.0-8.0); NEUTROPHILS # 1.8 10^3/uL (1.5-8.5); NEUTROPHILS % 40.1 % (36.0-66.0); PLATELET COUNT, AUTOMATED 263 10^3/uL (150-450); RED BLOOD COUNT 3.91 10^6/uL (4.00-5.40); WHITE BLOOD COUNT 4.5 10^3/uL (4.0-10.0)
[2023-05-06] MEDS: INSULIN LISPRO (NovoLOG) PER UNIT SC SCH ×2 (08:03→11:29)
[2023-05-06] MEDS: PANTOPRAZOLE 40MG TAB (PROTONIX) PO SCH (08:04)
[2023-05-06] MEDS: MAGNESIUM OXIDE 400MG TAB (MAG-OX) PO SCH ×2 (08:04→16:02)
[2023-05-06] MEDS: LIDOCAINE 5% (LIDODERM) PATCH TD SCH (08:04)
[2023-05-06] MEDS: ENOXAPARIN 40MG/0.4ML SYRINGE (J1650 PER 10MG) SC SCH (08:04)
[2023-05-06 08:10] LABS: ALBUMIN 3.5 G/DL (3.2-5.2); ALKALINE PHOSPHATASE 84 U/L (46-116); ALT/SGPT 49 U/L (7.0-40); AST/SGOT 32 U/L (<34); BILIRUBIN,TOTAL 0.6 MG/DL (0.3-1.2); BLOOD UREA NITROGEN < 5 MG/DL (9-23); CALCIUM LEVEL 9.3 MG/DL (8.5-10.1); CARBON DIOXIDE LEVEL 29 MMOL/L (20-31); CHLORIDE LEVEL 101 MMOL/L (98-107); CREATININE FOR GFR 0.58 MG/DL (0.55-1.30); GLOMERULAR FILTRATION RATE > 60.0 (>60); GLUCOSE, FASTING 197 MG/DL (60-100); MAGNESIUM LEVEL 1.7 MG/DL (1.8-2.4); POTASSIUM SERUM 4.3 MMOL/L (3.5-5.1); SODIUM LEVEL 138 MMOL/L (136-145); TOTAL PROTEIN 6.3 G/DL (5.7-8.2)
[2023-05-06] MEDS ORDERED: LEVEMIR (INSULIN DETEMIR) 1 UNITS/0.01ML SC SCH (09:00)
[2023-05-06] MEDS ORDERED: LIDO5TD TD ×2 (10:24→11:16)
[2023-05-06] MEDS ORDERED: CARA1TAB6 PO ×2 (10:24→11:16)
[2023-05-06] MEDS ORDERED: ACET-683 PO ×2 (10:24→11:16)
[2023-05-06] MEDS ORDERED: PANT40TA29 PO ×2 (10:24→11:16)
[2023-05-06] MEDS ORDERED: PERC7.5T11 PO ×2 (10:24→11:16)
[2023-05-06] MEDS ORDERED: NARC1SPR NARES ×3 (10:28→11:18)
[2023-05-06] MEDS ORDERED: PERC10TA26 PO (14:31)
== END 2023-05-06 16:33 | disposition home or self-care (01) | DRG 438 ==
LOC: M ED 15:37 → M ED INP 05-01 00:36 → M PCU 05-01 02:40
PROVIDERS: ADMIT Internal Medicine; ATTEND Student in an Organized Health Care Education/Training Program
DX: K85.10 Biliary acute pancreatitis without necrosis or infection (principal); K22.6 Gastro-esophageal laceration-hemorrhage syndrome; E87.20 Acidosis, unspecified; N39.0 Urinary tract infection, site not specified; R74.01 Elevation of levels of liver transaminase levels; K80.20 Calculus of gallbladder without cholecystitis without obstruction; E11.9 Type 2 diabetes mellitus without complications; F10.229 Alcohol dependence with intoxication, unspecified; E83.42 Hypomagnesemia; K76.0 Fatty (change of) liver, not elsewhere classified; K86.1 Other chronic pancreatitis; Z79.4 Long term (current) use of insulin

== ENCOUNTER 2023-08-09 08:48 | Inpatient (IN) | payer OTHER ==
[~2023-08-09] VITALS: Ht 162.6 cm; Wt 78.6 kg
[~2023-08-09 08:48] MED LIST changes: +ACET-683 PO; +ATOR1TAB21 PO; +CARA1TAB6 PO; +CYCL-707 PO; +GLUT40GE PO; +HYDR-4571 PO; +INSU100I60 SC; +LIDO5TD TD; +LISI10TA22 PO; +NARC1SPR NARES; +PANT40TA29 PO; +PERC10TA26 PO; +PERC7.5T11 PO; +REFR0.5D8 OU
[2023-08-09] MEDS ORDERED: ONDANSETRON 4MG 2ML VIAL IV ONE (09:20)
[2023-08-09] MEDS ORDERED: fentaNYL 100 MCG/2 ML INJECTION IV ONE (09:20)
[2023-08-09] MEDS ORDERED: NS 1,000 ML IV ONE (09:20)
[2023-08-09] MEDS ORDERED: ISOVUE-370 76% 100ML VIAL As Ordered ONE (10:50)
[2023-08-09 11:02] LABS: BASO % 0.8 % (0.0-1.0); EOS % 0.8 % (0.0-3.0); HEMATOCRIT 43.2 % (36.0-47.0); HEMOGLOBIN 15.9 g/dl (12.0-15.5); LYMPH # 0.9 10^3/uL (1.5-5.0); LYMPH % 19.3 % (24.0-44.0); MEAN CORPUSCULAR HEMOGLOBIN 39.6 pg (27.0-33.0); MEAN CORPUSCULAR VOLUME 107.5 fl (80.0-96.0); MONO # 0.5 10^3/uL (0.0-0.8); MONO % 10.2 % (2.0-8.0); NEUTROPHILS # 3.4 10^3/uL (1.5-8.5); NEUTROPHILS % 68.7 % (36.0-66.0); PLATELET COUNT, AUTOMATED 239 10^3/uL (150-450); RED BLOOD COUNT 4.02 10^6/uL (4.00-5.40); WHITE BLOOD COUNT 4.9 10^3/uL (4.0-10.0)
[2023-08-09 11:04] LABS: MEAN CORPUSCULAR HGB CONC 36.8 g/dl (32.0-36.5)
[2023-08-09 11:11] LABS: LIPASE 62 U/L (12-53)
[2023-08-09 11:12] LABS: ETHYL ALCOHOL (ETHANOL) < 0.003 % (0.000-0.010)
[2023-08-09 11:14] LABS: ALBUMIN 4.3 G/DL (3.2-5.2); ALKALINE PHOSPHATASE 129 U/L (46-116); ALT/SGPT 172 U/L (7.0-40); AST/SGOT 203 U/L (<34); BILIRUBIN,DIRECT 1.4 MG/DL (<0.4); BILIRUBIN,TOTAL 3.1 MG/DL (0.3-1.2); BLOOD UREA NITROGEN 11 MG/DL (9-23); CALCIUM LEVEL 10.1 MG/DL (8.5-10.1); CARBON DIOXIDE LEVEL 24 MMOL/L (20-31); CHLORIDE LEVEL 99 MMOL/L (98-107); CREATININE FOR GFR 0.61 MG/DL (0.55-1.30); GLOMERULAR FILTRATION RATE > 60.0 (>60); GLUCOSE, FASTING 184 MG/DL (60-100); HCG, SERUM QUALITATIVE NEGATIVE (NEGATIVE); POTASSIUM SERUM 4.3 MMOL/L (3.5-5.1); SODIUM LEVEL 135 MMOL/L (136-145); TOTAL PROTEIN 7.5 G/DL (5.7-8.2)
[2023-08-09 11:24] LABS: RSV AMPLIFICATION NEGATIVE (NEGATIVE)
[2023-08-09] MEDS: fentaNYL 100 MCG/2 ML INJECTION IV PRN ×2 (11:27→13:47)
[2023-08-09] MEDS: INSULIN LISPRO (NovoLOG) PER UNIT SC SCH ×3 (12:00→23:35)
[2023-08-09] MEDS ORDERED: MED REC IN PROGRESS XX SCH (12:20)
[2023-08-09] MEDS ORDERED: LIDO1PAD TOP (12:39)
[2023-08-09] MEDS ORDERED: HOME MED LIST COMPLETE! XX SCH (12:45)
[2023-08-09] MEDS ORDERED: LR 1,000 ML IV ONE (13:05)
[2023-08-09] MEDS ORDERED: LORazepam 2 MG TAB PO PRN (13:05)
[2023-08-09] MEDS ORDERED: LR 1,000 ML IV SCH (13:05)
[2023-08-09] MEDS ORDERED: DEXTROSE 50% 50ML SYRINGE IV PRN (13:10)
[2023-08-09] MEDS ORDERED: GLUCAGON INJ 1MG VIAL SC PRN (13:10)
[2023-08-09] MEDS ORDERED: GLUCOSE 4GM CHEW TABLET PO PRN (13:10)
[2023-08-09] MEDS ORDERED: cefTRIAXone SOD 1 GM in D5W MINI-BAG PLUS 50 ML IV SCH (14:00)
[2023-08-09 14:17] LABS: HEPATITIS B CORE ANTIBODY IGM NEGATIVE (NEGATIVE); HEPATITIS C VIRUS ABY INDEX 0.06 INDEX (<0.8)
[2023-08-09 14:27] LABS: INR 1.27; PROTHROMBIN TIME 15.5 SECONDS (12.5-14.5)
[2023-08-09 14:40] LABS: FOLATE 4.1 NG/ML (>5.4); TRIGLYCERIDES LEVEL 111 MG/DL (<150); VITAMIN B12 LEVEL 458 PG/ML (211-911)
[2023-08-09] MEDS: HYDROMORPHONE HCL 0.5 MG/ 0.5 ML SYRINGE IV PRN ×4 (14:53→22:55)
[2023-08-09 16:00] VITALS: BP 162/91; TEMP 97.1; O2SAT 94
[2023-08-09] MEDS ORDERED: MULTIVITAMIN -ADULT INJECTION 10 ML, THIAMINE INJection 100 MG, FOLIC ACID 1 MG in NS 1... IV ONE (16:00)
[2023-08-09] MEDS: ONDANSETRON 4MG 2ML VIAL IV PRN ×2 (16:34→20:57)
[2023-08-09 19:48] VITALS: BP 145/88; TEMP 97.5; O2SAT 98
[2023-08-09] MEDS: THIAMINE 100 MG TAB PO SCH (20:55)
[2023-08-09] MEDS: PANTOPRAZOLE 40MG VIAL IV SCH (22:09)
[2023-08-09 23:37] VITALS: BP 151/88; TEMP 97.4; O2SAT 96
[2023-08-10] MEDS: HYDROMORPHONE HCL 0.5 MG/ 0.5 ML SYRINGE IV PRN ×7 (02:00→21:26)
[2023-08-10 04:00] VITALS: BP 144/95; TEMP 97.6; O2SAT 98
[2023-08-10] MEDS: LR 1,000 ML IV SCH ×3 (04:17→19:44)
[2023-08-10] MEDS: INSULIN LISPRO (NovoLOG) PER UNIT SC SCH ×4 (05:56→23:10)
[2023-08-10 06:40] LABS: BASO % 0.5 % (0.0-1.0); EOS # 0.1 10^3/uL (0.0-0.5); HEMATOCRIT 36.7 % (36.0-47.0); MEAN CORPUSCULAR HEMOGLOBIN 40.1 pg (27.0-33.0); MEAN CORPUSCULAR HGB CONC 36.2 g/dl (32.0-36.5); MEAN CORPUSCULAR VOLUME 110.5 fl (80.0-96.0); MONO # 0.5 10^3/uL (0.0-0.8); MONO % 8.3 % (2.0-8.0); NEUTROPHILS # 4.5 10^3/uL (1.5-8.5); NEUTROPHILS % 73.9 % (36.0-66.0); PLATELET COUNT, AUTOMATED 176 10^3/uL (150-450); RED BLOOD COUNT 3.32 10^6/uL (4.00-5.40); WHITE BLOOD COUNT 6.1 10^3/uL (4.0-10.0)
[2023-08-10 06:46] LABS: HEMOGLOBIN 13.3 g/dl (12.0-15.5)
[2023-08-10 07:13] LABS: ALBUMIN 3.5 G/DL (3.2-5.2); ALKALINE PHOSPHATASE 95 U/L (46-116); ALT/SGPT 113 U/L (7.0-40); AST/SGOT 96 U/L (<34); BILIRUBIN,TOTAL 1.8 MG/DL (0.3-1.2); BLOOD UREA NITROGEN 11 MG/DL (9-23); CALCIUM LEVEL 8.7 MG/DL (8.5-10.1); CARBON DIOXIDE LEVEL 25 MMOL/L (20-31); CHLORIDE LEVEL 104 MMOL/L (98-107); CREATININE FOR GFR 0.57 MG/DL (0.55-1.30); GLOMERULAR FILTRATION RATE > 60.0 (>60); GLUCOSE, FASTING 147 MG/DL (60-100); SODIUM LEVEL 139 MMOL/L (136-145)
[2023-08-10 07:33] VITALS: BP 152/100; TEMP 97.8; O2SAT 98
[2023-08-10] MEDS: ONDANSETRON 4MG 2ML VIAL IV PRN ×2 (07:44→15:31)
[2023-08-10] MEDS: THIAMINE 100 MG TAB PO SCH ×2 (07:51→20:14)
[2023-08-10] MEDS: FOLIC ACID 1MG TAB PO SCH (07:51)
[2023-08-10] MEDS: MULTIVITAMINS/MINERALS THERAP 1 TAB PO SCH (07:51)
[2023-08-10] MEDS: ENOXAPARIN 40MG/0.4ML SYRINGE (J1650 PER 10MG) SC SCH (07:58)
[2023-08-10 09:10] LABS: HEMOGLOBIN A1c 5.9 % (4.0-6.0)
[2023-08-10] MEDS: METOCLOPRAMIDE INJ 10MG/2ML VIAL IV SCH ×4 (09:52→23:05)
[2023-08-10 11:47] VITALS: BP 119/67; TEMP 97.5; O2SAT 95
[2023-08-10 15:43] VITALS: BP 131/77; TEMP 96.9; O2SAT 97
[2023-08-10 19:48] VITALS: BP 126/79; TEMP 97; O2SAT 96
[2023-08-10] MEDS: PANTOPRAZOLE 40MG VIAL IV SCH (21:26)
[2023-08-10] MEDS ORDERED: traZODone 25MG PER 1/2 TABLET PO PRN (23:25)
[2023-08-10 23:36] VITALS: BP 166/83; TEMP 97.3; O2SAT 97
[2023-08-10] MEDS ORDERED: diphenhydrAMINE 50MG/ML VIAL IV PRN (23:55)
[2023-08-11] MEDS: ONDANSETRON 4MG 2ML VIAL IV PRN (00:04)
[2023-08-11] MEDS: HYDROMORPHONE HCL 0.5 MG/ 0.5 ML SYRINGE IV PRN ×7 (00:26→21:48)
[2023-08-11 03:27] VITALS: BP 146/83; TEMP 97.4; O2SAT 98
[2023-08-11] MEDS: LR 1,000 ML IV SCH ×3 (03:48→20:14)
[2023-08-11] MEDS: METOCLOPRAMIDE INJ 10MG/2ML VIAL IV SCH ×4 (05:30→23:39)
[2023-08-11] MEDS: INSULIN LISPRO (NovoLOG) PER UNIT SC SCH ×4 (06:00→23:39)
[2023-08-11 06:01] LABS: BASO % 0.8 % (0.0-1.0); EOS # 0.1 10^3/uL (0.0-0.5); EOS % 2.5 % (0.0-3.0); HEMATOCRIT 36.6 % (36.0-47.0); HEMOGLOBIN 13.5 g/dl (12.0-15.5); LYMPH # 1.2 10^3/uL (1.5-5.0); LYMPH % 25.2 % (24.0-44.0); MEAN CORPUSCULAR HEMOGLOBIN 40.3 pg (27.0-33.0); MEAN CORPUSCULAR VOLUME 109.3 fl (80.0-96.0); MONO # 0.5 10^3/uL (0.0-0.8); MONO % 9.4 % (2.0-8.0); NEUTROPHILS % 61.9 % (36.0-66.0); PLATELET COUNT, AUTOMATED 150 10^3/uL (150-450); RED BLOOD COUNT 3.35 10^6/uL (4.00-5.40); WHITE BLOOD COUNT 4.9 10^3/uL (4.0-10.0)
[2023-08-11 06:03] LABS: MEAN CORPUSCULAR HGB CONC 36.9 g/dl (32.0-36.5)
[2023-08-11 06:20] LABS: ALBUMIN 3.5 G/DL (3.2-5.2); ALKALINE PHOSPHATASE 86 U/L (46-116); ALT/SGPT 88 U/L (7.0-40); AST/SGOT 78 U/L (<34); BLOOD UREA NITROGEN 5 MG/DL (9-23); CALCIUM LEVEL 8.6 MG/DL (8.5-10.1); CARBON DIOXIDE LEVEL 26 MMOL/L (20-31); CHLORIDE LEVEL 100 MMOL/L (98-107); CREATININE FOR GFR 0.53 MG/DL (0.55-1.30); GLOMERULAR FILTRATION RATE > 60.0 (>60); GLUCOSE, FASTING 112 MG/DL (60-100); POTASSIUM SERUM 3.6 MMOL/L (3.5-5.1); SODIUM LEVEL 136 MMOL/L (136-145); TOTAL PROTEIN 5.9 G/DL (5.7-8.2)
[2023-08-11 07:47] VITALS: BP 142/86; TEMP 97; O2SAT 96
[2023-08-11] MEDS: FOLIC ACID 1MG TAB PO SCH (09:00)
[2023-08-11] MEDS: MULTIVITAMINS/MINERALS THERAP 1 TAB PO SCH (09:00)
[2023-08-11] MEDS: THIAMINE 100 MG TAB PO SCH ×2 (09:00→20:14)
[2023-08-11] MEDS: ENOXAPARIN 40MG/0.4ML SYRINGE (J1650 PER 10MG) SC SCH (10:03)
[2023-08-11] MEDS ORDERED: HYDROMORPHONE HCL 0.5 MG/ 0.5 ML SYRINGE IV PRN (10:20)
[2023-08-11 11:53] VITALS: BP 154/89; TEMP 97.1; O2SAT 98
[2023-08-11 15:59] VITALS: BP 180/97; TEMP 97.3; O2SAT 92
[2023-08-11] MEDS ORDERED: hydrALAZINE 20MG/ML 1ML VIAL IV PRN (16:15)
[2023-08-11] MEDS: PERCOCET 5MG/325MG TAB PO PRN ×2 (16:19→20:15)
[2023-08-11 20:00] VITALS: BP 131/84; TEMP 97.8; O2SAT 98
[2023-08-11] MEDS: PANTOPRAZOLE 40MG VIAL IV SCH (21:48)
[2023-08-11 23:48] VITALS: BP 135/88; TEMP 98.4; O2SAT 99
[2023-08-12] MEDS: HYDROMORPHONE HCL 0.5 MG/ 0.5 ML SYRINGE IV PRN ×3 (00:53→08:08)
[2023-08-12] MEDS: PERCOCET 5MG/325MG TAB PO PRN ×5 (02:37→23:13)
[2023-08-12 04:00] VITALS: BP 131/66; TEMP 98.3; O2SAT 99
[2023-08-12] MEDS: LR 1,000 ML IV SCH ×3 (04:58→21:50)
[2023-08-12] MEDS: INSULIN LISPRO (NovoLOG) PER UNIT SC SCH ×3 (05:35→17:30)
[2023-08-12] MEDS: METOCLOPRAMIDE INJ 10MG/2ML VIAL IV SCH (05:35)
[2023-08-12 05:48] LABS: BASO % 0.6 % (0.0-1.0); EOS # 0.1 10^3/uL (0.0-0.5); EOS % 1.8 % (0.0-3.0); HEMATOCRIT 36.3 % (36.0-47.0); HEMOGLOBIN 13.5 g/dl (12.0-15.5); LYMPH # 1.6 10^3/uL (1.5-5.0); LYMPH % 32.5 % (24.0-44.0); MEAN CORPUSCULAR HEMOGLOBIN 39.8 pg (27.0-33.0); MEAN CORPUSCULAR VOLUME 107.1 fl (80.0-96.0); MONO # 0.5 10^3/uL (0.0-0.8); NEUTROPHILS # 2.7 10^3/uL (1.5-8.5); NEUTROPHILS % 54.9 % (36.0-66.0); PLATELET COUNT, AUTOMATED 158 10^3/uL (150-450); RED BLOOD COUNT 3.39 10^6/uL (4.00-5.40); WHITE BLOOD COUNT 4.9 10^3/uL (4.0-10.0)
[2023-08-12 05:52] LABS: MEAN CORPUSCULAR HGB CONC 37.2 g/dl (32.0-36.5)
[2023-08-12 06:08] LABS: LIPASE 48 U/L (12-53)
[2023-08-12 06:16] LABS: ALBUMIN 3.5 G/DL (3.2-5.2); ALKALINE PHOSPHATASE 83 U/L (46-116); ALT/SGPT 77 U/L (7.0-40); AST/SGOT 66 U/L (<34); BILIRUBIN,TOTAL 1.8 MG/DL (0.3-1.2); BLOOD UREA NITROGEN < 5 MG/DL (9-23); CALCIUM LEVEL 8.6 MG/DL (8.5-10.1); CARBON DIOXIDE LEVEL 30 MMOL/L (20-31); CHLORIDE LEVEL 100 MMOL/L (98-107); GLOMERULAR FILTRATION RATE > 60.0 (>60); GLUCOSE, FASTING 116 MG/DL (60-100); POTASSIUM SERUM 3.3 MMOL/L (3.5-5.1); SODIUM LEVEL 139 MMOL/L (136-145); TOTAL PROTEIN 5.9 G/DL (5.7-8.2)
[2023-08-12 08:00] VITALS: BP 170/90; TEMP 97; O2SAT 98
[2023-08-12] MEDS ORDERED: POTASSIUM CHLORIDE 10MEQ SR TABLET PO ONE (08:00)
[2023-08-12] MEDS: ONDANSETRON 4MG 2ML VIAL IV PRN ×2 (08:32→22:32)
[2023-08-12] MEDS: MULTIVITAMINS/MINERALS THERAP 1 TAB PO SCH (09:01)
[2023-08-12] MEDS: ENOXAPARIN 40MG/0.4ML SYRINGE (J1650 PER 10MG) SC SCH (09:01)
[2023-08-12] MEDS: THIAMINE 100 MG TAB PO SCH (09:01)
[2023-08-12] MEDS: FOLIC ACID 1MG TAB PO SCH (09:01)
[2023-08-12] MEDS ORDERED: ISOVUE-370 76% 100ML VIAL As Ordered ONE (09:46)
[2023-08-12] MEDS: amLODIPine 5 MG TAB PO SCH (10:53)
[2023-08-12] MEDS ORDERED: MORPHINE 2 MG/ML 1ML VIAL IV PRN (11:15)
[2023-08-12 11:42] VITALS: BP 133/81; TEMP 98.3; O2SAT 97
[2023-08-12] MEDS: MORPHINE 2 MG/ML 1ML VIAL IV PRN ×2 (11:43→18:19)
[2023-08-12 15:54] VITALS: BP 146/80; TEMP 97.1; O2SAT 98
[2023-08-12 20:00] VITALS: BP 158/97; TEMP 98.7; O2SAT 97
[2023-08-12] MEDS ORDERED: INSULIN LISPRO (NovoLOG) PER UNIT SC SCH (21:00)
[2023-08-12] MEDS: PANTOPRAZOLE 40MG VIAL IV SCH (21:50)
[2023-08-13] VITALS: BP 159/93; TEMP 97.1; O2SAT 98
[2023-08-13] MEDS: MORPHINE 2 MG/ML 1ML VIAL IV PRN ×3 (00:26→09:14)
[2023-08-13] MEDS: ONDANSETRON 4MG 2ML VIAL IV PRN ×2 (02:47→07:02)
[2023-08-13] MEDS: PERCOCET 5MG/325MG TAB PO PRN ×3 (03:14→11:58)
[2023-08-13 04:00] VITALS: BP 164/100; TEMP 96.8; O2SAT 96
[2023-08-13 06:34] LABS: ALBUMIN 3.7 G/DL (3.2-5.2); ALKALINE PHOSPHATASE 87 U/L (46-116); ALT/SGPT 71 U/L (7.0-40); AST/SGOT 58 U/L (<34); BILIRUBIN,TOTAL 1.6 MG/DL (0.3-1.2); BLOOD UREA NITROGEN < 5 MG/DL (9-23); CALCIUM LEVEL 8.9 MG/DL (8.5-10.1); CARBON DIOXIDE LEVEL 29 MMOL/L (20-31); CHLORIDE LEVEL 98 MMOL/L (98-107); CREATININE FOR GFR 0.51 MG/DL (0.55-1.30); GLOMERULAR FILTRATION RATE > 60.0 (>60); GLUCOSE, FASTING 154 MG/DL (60-100); POTASSIUM SERUM 3.5 MMOL/L (3.5-5.1); SODIUM LEVEL 138 MMOL/L (136-145); TOTAL PROTEIN 6.3 G/DL (5.7-8.2)
[2023-08-13] MEDS: LR 1,000 ML IV SCH (07:02)
[2023-08-13 07:24] VITALS: BP 162/96; TEMP 96.7; O2SAT 96
[2023-08-13] MEDS: ENOXAPARIN 40MG/0.4ML SYRINGE (J1650 PER 10MG) SC SCH (08:19)
[2023-08-13] MEDS: INSULIN LISPRO (NovoLOG) PER UNIT SC SCH ×2 (08:20→11:59)
[2023-08-13] MEDS: FOLIC ACID 1MG TAB PO SCH (08:21)
[2023-08-13] MEDS: MULTIVITAMINS/MINERALS THERAP 1 TAB PO SCH (08:21)
[2023-08-13 08:22] VITALS: BP 162/96
[2023-08-13] MEDS: amLODIPine 5 MG TAB PO SCH (08:22)
[2023-08-13] MEDS ORDERED: DULoxetine 30MG CAPSULE (CYMBALTA) PO SCH (09:00)
[2023-08-13] MEDS ORDERED: RAMELTEON 8 MG TAB (ROZEREM) PO PRN (09:50)
[2023-08-13] MEDS ORDERED: DOCUSATE SODIUM 100MG CAPSULE PO ONE (10:15)
[2023-08-13 11:54] VITALS: BP 158/89; TEMP 97.5; O2SAT 95
[2023-08-13] MEDS ORDERED: DOCUSATE SODIUM 100MG CAPSULE PO PRN (13:00)
[2023-08-13] MEDS ORDERED: PROT1TAB2 PO (13:13)
[2023-08-13] MEDS ORDERED: MIRA3350 PO (13:13)
[2023-08-13] MEDS ORDERED: AMLO1TAB24 PO (13:13)
[2023-08-13] MEDS ORDERED: INSU100I60 SC (13:13)
[2023-08-13] MEDS ORDERED: FOLI1TAB11 PO (13:13)
[2023-08-13] MEDS ORDERED: THIA100TA PO (13:13)
[2023-08-13] MEDS ORDERED: OXYC1TAB23 PO (13:13)
[2023-08-13] MEDS ORDERED: CYMB1CAP5 PO (13:13)
[2023-08-13] MEDS ORDERED: AMITRIPTYLINE 25MG TABLET PO SCH (21:00)
== END 2023-08-13 15:21 | disposition home or self-care (01) | DRG 439 ==
LOC: M ED 08:48 → M ED INP 13:08 → ENRESERV 14:16 → M PCU 16:06
PROVIDERS: ADMIT Internal Medicine; ATTEND Internal Medicine
DX: K85.20 Alcohol induced acute pancreatitis without necrosis or infection (principal); E87.1 Hypo-osmolality and hyponatremia; R74.01 Elevation of levels of liver transaminase levels; E11.9 Type 2 diabetes mellitus without complications; F10.20 Alcohol dependence, uncomplicated; D75.89 Other specified diseases of blood and blood-forming organs; K70.10 Alcoholic hepatitis without ascites; F43.10 Post-traumatic stress disorder, unspecified; F41.9 Anxiety disorder, unspecified; F32.A Depression, unspecified; K86.0 Alcohol-induced chronic pancreatitis; Z79.4 Long term (current) use of insulin; Z79.899 Other long term (current) drug therapy; Z88.6 Allergy status to analgesic agent

== ENCOUNTER 2024-02-13 23:43 | Inpatient (IN) | payer OTHER ==
[~2024-02-13] VITALS: Ht 160 cm; Wt 76.1 kg
[~2024-02-13 23:43] MED LIST changes: +AMLO1TAB24 PO; +CYMB1CAP5 PO; +LIDO1PAD TOP; +MIRA3350 PO; +ONDA-282 PO; -ONDA4TAB6 PO; +OXYC1TAB23 PO; +PROT1TAB2 PO
[2024-02-14 00:34] LABS: BASO # 0.1 10^3/uL (0.0-0.2); BASO % 0.7 % (0.0-1.0); EOS % 0.6 % (0.0-3.0); HEMOGLOBIN 14.5 g/dl (12.0-15.5); LYMPH # 1.4 10^3/uL (1.5-5.0); LYMPH % 21.1 % (24.0-44.0); MEAN CORPUSCULAR HEMOGLOBIN 37.4 pg (27.0-33.0); MEAN CORPUSCULAR VOLUME 100.5 fl (80.0-96.0); MONO # 0.3 10^3/uL (0.0-0.8); NEUTROPHILS # 4.9 10^3/uL (1.5-8.5); NEUTROPHILS % 72.5 % (36.0-66.0); PLATELET COUNT, AUTOMATED 136 10^3/uL (150-450); RED BLOOD COUNT 3.88 10^6/uL (4.00-5.40); WHITE BLOOD COUNT 6.7 10^3/uL (4.0-10.0)
[2024-02-14 00:47] LABS: MEAN CORPUSCULAR HGB CONC 37.2 g/dl (32.0-36.5)
[2024-02-14 00:57] LABS: LIPASE 54 U/L (12-53)
[2024-02-14 00:59] LABS: ALBUMIN 4.2 G/DL (3.2-5.2); ALKALINE PHOSPHATASE 74 U/L (46-116); ALT/SGPT 36 U/L (7.0-40); AST/SGOT 62 U/L (<34); BILIRUBIN,DIRECT 1.5 MG/DL (<0.4); BILIRUBIN,TOTAL 4.2 MG/DL (0.3-1.2); BLOOD UREA NITROGEN 14 MG/DL (9-23); CALCIUM LEVEL 9.4 MG/DL (8.5-10.1); CARBON DIOXIDE LEVEL 24 MMOL/L (20-31); CHLORIDE LEVEL 97 MMOL/L (98-107); CREATININE FOR GFR 0.69 MG/DL (0.55-1.30); GLOMERULAR FILTRATION RATE > 60.0 (>60); GLUCOSE, FASTING 283 MG/DL (60-100); POTASSIUM SERUM 3.8 MMOL/L (3.5-5.1); SODIUM LEVEL 132 MMOL/L (136-145); TOTAL PROTEIN 6.9 G/DL (5.7-8.2)
[2024-02-14 01:06] LABS: HCG, SERUM QUALITATIVE NEGATIVE (NEGATIVE)
[2024-02-14] MEDS ORDERED: ISOVUE-370 76% 100ML VIAL As Ordered ONE (07:26)
[2024-02-14] MEDS: HALOPERIDOL LACTATE 5MG/ML VIAL IV ONE (07:57)
[2024-02-14] MEDS: ONDANSETRON 4MG 2ML VIAL IV ONE (07:57)
[2024-02-14] MEDS: NS 1,000 ML IV ONE (07:58)
[2024-02-14] MEDS: ACETAMINOPHEN *IV* 1,000 MG in IV 1 EA IV ONE (08:40)
[2024-02-14] MEDS: MORPHINE 4 MG/ML 1ML VIAL IV ONE ×2 (08:58→11:10)
[2024-02-14] MEDS: PANTOPRAZOLE 40MG VIAL IV ONE (11:48)
[2024-02-14] MEDS: LABETALOL 100MG/20ML VIAL IV STA (12:34)
[2024-02-14] MEDS ORDERED: LANTINJ4 SC (13:27)
[2024-02-14] MEDS: MORPHINE 4 MG/ML 1ML VIAL IV PRN (14:33)
[2024-02-14] MEDS ORDERED: HOME MED LIST COMPLETE! XX SCH (15:45)
[2024-02-14] MEDS ORDERED: DEXTROSE 50% 50ML SYRINGE IV PRN (16:00)
[2024-02-14] MEDS ORDERED: GLUCOSE 4 GM CHEW PO PRN (16:00)
[2024-02-14] MEDS ORDERED: ACETAMINOPHEN TAB 650MG DOSE (2X325MG) PO PRN (16:00)
[2024-02-14] MEDS ORDERED: GLUCAGON INJ 1MG VIAL SC PRN (16:00)
[2024-02-14] MEDS ORDERED: LABETALOL 100MG/20ML VIAL IV PRN (16:40)
[2024-02-14 17:19] VITALS: BP 171/81; TEMP 97.5; O2SAT 98
[2024-02-14 17:30] VITALS: BP 126/71
[2024-02-14] MEDS ORDERED: PILL CUTTER 1 EACH XX ONE (17:30)
[2024-02-14] MEDS: INSULIN LISPRO (NovoLOG) PER UNIT SC SCH ×2 (17:30→20:43)
[2024-02-14] MEDS: HYDROmorphone 2 MG TAB PO PRN (17:33)
[2024-02-14 18:30] LABS: INR 1.28; PROTHROMBIN TIME 15.6 SECONDS (12.5-14.5)
[2024-02-14] MEDS: MULTIVITAMIN -ADULT INJECTION 10 ML, THIAMINE INJection 100 MG, FOLIC ACID 1 MG in NS 1... IV ONE (18:43)
[2024-02-14 20:00] VITALS: BP_SYST 140; BP_DIAS 95; BP_DIAS 98; TEMP 97.9; O2SAT 97
[2024-02-14 22:00] VITALS: BP 140/98
[2024-02-15 04:00] VITALS: BP 154/97; TEMP 97.7; O2SAT 97
[2024-02-15] MEDS: KCL 40MEQ in NS 1000ML 1,000 ML IV SCH (05:21)
[2024-02-15 06:58] LABS: HEMOGLOBIN 11.9 g/dl (12.0-15.5); MEAN CORPUSCULAR HEMOGLOBIN 37.3 pg (27.0-33.0); MEAN CORPUSCULAR VOLUME 106.6 fl (80.0-96.0); PLATELET COUNT, AUTOMATED 108 10^3/uL (150-450); RED BLOOD COUNT 3.19 10^6/uL (4.00-5.40); WHITE BLOOD COUNT 3.9 10^3/uL (4.0-10.0)
[2024-02-15 07:30] LABS: ALBUMIN 3.3 G/DL (3.2-5.2); ALKALINE PHOSPHATASE 55 U/L (46-116); ALT/SGPT 27 U/L (7.0-40); AST/SGOT 38 U/L (<34); BILIRUBIN,TOTAL 1.4 MG/DL (0.3-1.2); BLOOD UREA NITROGEN 6 MG/DL (9-23); CALCIUM LEVEL 8.4 MG/DL (8.5-10.1); CARBON DIOXIDE LEVEL 24 MMOL/L (20-31); CHLORIDE LEVEL 104 MMOL/L (98-107); CREATININE FOR GFR 0.46 MG/DL (0.55-1.30); GLOMERULAR FILTRATION RATE > 60.0 (>60); GLUCOSE, FASTING 185 MG/DL (60-100); MAGNESIUM LEVEL 1.1 MG/DL (1.8-2.4); POTASSIUM SERUM 3.8 MMOL/L (3.5-5.1); SODIUM LEVEL 136 MMOL/L (136-145); TOTAL PROTEIN 5.7 G/DL (5.7-8.2)
[2024-02-15] MEDS ORDERED: FOLIC ACID 1 MG in NS 50 ML IV SCH (09:00)
[2024-02-15] MEDS: ENOXAPARIN 40MG/0.4ML SYRINGE (J1650 PER 10MG) SC SCH (09:20)
[2024-02-15] MEDS: FOLIC ACID 1MG TAB PO SCH (09:21)
[2024-02-15] MEDS: THIAMINE 100 MG TAB PO SCH (09:21)
[2024-02-15] MEDS: MULTIVITAMINS/MINERALS THERAP 1 TAB PO SCH (09:21)
[2024-02-15] MEDS: MAG SULF 1GM/100ML (MAG RUN) 1 GM in IV 1 EA IV SCH (09:21)
[2024-02-15] MEDS: PANTOPRAZOLE 40MG VIAL IV SCH (09:21)
[2024-02-15 12:00] VITALS: BP 158/97; TEMP 97.7; O2SAT 98
[2024-02-15] MEDS: cefTRIAXone SOD 1 GM in D5W MINI-BAG PLUS 50 ML IV SCH (14:58)
[2024-02-15] MEDS: ONDANSETRON 4MG 2ML VIAL IV PRN (16:25)
[2024-02-15] MEDS: METOPROLOL TART 25 MG TABLET PO ONE (16:34)
[2024-02-15] MEDS: MORPHINE 4 MG/ML 1ML VIAL IV PRN (17:30)
[2024-02-15 20:00] VITALS: BP 150/76
[2024-02-15 20:20] VITALS: BP 150/96; TEMP 97.9; O2SAT 98
[2024-02-15 20:24] VITALS: BP 150/96
[2024-02-15] MEDS: METOPROLOL TART 25 MG TABLET PO SCH (20:24)
[2024-02-15] MEDS ORDERED: HYDROMORPHONE HCL 0.5 MG/ 0.5 ML SYRINGE IV PRN (22:30)
[2024-02-15] MEDS: HYDROMORPHONE HCL 0.5 MG/ 0.5 ML SYRINGE IV PRN (23:01)
[2024-02-16 03:44] VITALS: BP 122/91; TEMP 97.7; O2SAT 97
[2024-02-16 06:50] LABS: BASO % 0.3 % (0.0-1.0); EOS # 0.1 10^3/uL (0.0-0.5); EOS % 1.5 % (0.0-3.0); HEMATOCRIT 31.8 % (36.0-47.0); HEMOGLOBIN 11.4 g/dl (12.0-15.5); LYMPH # 1.3 10^3/uL (1.5-5.0); LYMPH % 32.9 % (24.0-44.0); MEAN CORPUSCULAR HEMOGLOBIN 37.4 pg (27.0-33.0); MEAN CORPUSCULAR HGB CONC 35.8 g/dl (32.0-36.5); MEAN CORPUSCULAR VOLUME 104.3 fl (80.0-96.0); MONO # 0.5 10^3/uL (0.0-0.8); MONO % 11.6 % (2.0-8.0); NEUTROPHILS # 2.1 10^3/uL (1.5-8.5); NEUTROPHILS % 53.4 % (36.0-66.0); PLATELET COUNT, AUTOMATED 105 10^3/uL (150-450); RED BLOOD COUNT 3.05 10^6/uL (4.00-5.40)
[2024-02-16 07:20] LABS: ALBUMIN 3.4 G/DL (3.2-5.2); ALKALINE PHOSPHATASE 53 U/L (46-116); ALT/SGPT 24 U/L (7.0-40); AST/SGOT 27 U/L (<34); BILIRUBIN,TOTAL 0.8 MG/DL (0.3-1.2); BLOOD UREA NITROGEN < 5 MG/DL (9-23); CALCIUM LEVEL 8.4 MG/DL (8.5-10.1); CARBON DIOXIDE LEVEL 25 MMOL/L (20-31); CHLORIDE LEVEL 106 MMOL/L (98-107); CREATININE FOR GFR 0.49 MG/DL (0.55-1.30); GLOMERULAR FILTRATION RATE > 60.0 (>60); GLUCOSE, FASTING 160 MG/DL (60-100); MAGNESIUM LEVEL 1.4 MG/DL (1.8-2.4); PHOSPHORUS LEVEL 2.8 MG/DL (2.5-4.9); POTASSIUM SERUM 4.1 MMOL/L (3.5-5.1); SODIUM LEVEL 137 MMOL/L (136-145); TOTAL PROTEIN 5.5 G/DL (5.7-8.2)
[2024-02-16 09:00] VITALS: BP 143/101
[2024-02-16] MEDS: MAG SULF 1GM/100ML (MAG RUN) 1 GM in IV 1 EA IV SCH (09:04)
[2024-02-16] MEDS: MAGNESIUM OXIDE 400MG TAB (MAG-OX) PO SCH (09:05)
[2024-02-16] MEDS ORDERED: CEFD1CAP9 PO (11:10)
[2024-02-16] MEDS ORDERED: MAGN400T2 PO (11:10)
[2024-02-16] MEDS ORDERED: METO1TAB87 PO (11:10)
[2024-02-16 12:15] VITALS: BP 130/78; TEMP 97.3; O2SAT 97
[2024-02-16] MEDS ORDERED: OXYC1TAB23 PO (12:52)
== END 2024-02-16 12:59 | disposition home or self-care (01) | DRG 440 ==
LOC: M ED 23:43 → M ED INP 02-14 15:58 → M MSPAV 02-14 17:19
PROVIDERS: ADMIT Hospitalist; ATTEND Hospitalist
DX: K85.90 Acute pancreatitis without necrosis or infection, unspecified (principal); F10.10 Alcohol abuse, uncomplicated; K80.20 Calculus of gallbladder without cholecystitis without obstruction; K76.0 Fatty (change of) liver, not elsewhere classified; E11.9 Type 2 diabetes mellitus without complications; I15.8 Other secondary hypertension; Z79.4 Long term (current) use of insulin; Z79.899 Other long term (current) drug therapy; Z88.6 Allergy status to analgesic agent; K86.1 Other chronic pancreatitis

== ENCOUNTER 2024-02-19 15:41 | Emergency (ER) | payer OTHER ==
[~2024-02-19] VITALS: Ht 160 cm; Wt 75.5 kg
[~2024-02-19 15:41] MED LIST changes: +CEFD1CAP9 PO; +MAGN400T2 PO; +METO1TAB87 PO
[2024-02-19 18:34] LABS: BASO # 0.1 10^3/uL (0.0-0.2); EOS % 0.8 % (0.0-3.0); HEMATOCRIT 38.6 % (36.0-47.0); HEMOGLOBIN 13.8 g/dl (12.0-15.5); LYMPH # 1.3 10^3/uL (1.5-5.0); LYMPH % 25.6 % (24.0-44.0); MEAN CORPUSCULAR HGB CONC 35.8 g/dl (32.0-36.5); MEAN CORPUSCULAR VOLUME 103.5 fl (80.0-96.0); MONO # 0.6 10^3/uL (0.0-0.8); MONO % 12.5 % (2.0-8.0); NEUTROPHILS % 59.7 % (36.0-66.0); PLATELET COUNT, AUTOMATED 233 10^3/uL (150-450); RED BLOOD COUNT 3.73 10^6/uL (4.00-5.40)
[2024-02-19 18:53] LABS: LIPASE 85 U/L (12-53)
[2024-02-19 18:56] LABS: ALBUMIN 4.5 G/DL (3.2-5.2); ALKALINE PHOSPHATASE 80 U/L (46-116); ALT/SGPT 49 U/L (7.0-40); AST/SGOT 36 U/L (<34); BILIRUBIN,DIRECT 0.3 MG/DL (<0.4); BILIRUBIN,TOTAL 0.7 MG/DL (0.3-1.2); BLOOD UREA NITROGEN 7 MG/DL (9-23); CALCIUM LEVEL 9.5 MG/DL (8.5-10.1); CARBON DIOXIDE LEVEL 28 MMOL/L (20-31); CHLORIDE LEVEL 97 MMOL/L (98-107); CREATININE FOR GFR 0.56 MG/DL (0.55-1.30); GLOMERULAR FILTRATION RATE > 60.0 (>60); GLUCOSE, FASTING 317 MG/DL (60-100); POTASSIUM SERUM 4.2 MMOL/L (3.5-5.1); SODIUM LEVEL 133 MMOL/L (136-145)
[2024-02-19] MEDS: NS 1,000 ML IV ONE (19:22)
[2024-02-19] MEDS: ONDANSETRON 4MG 2ML VIAL IV ONE (19:22)
[2024-02-19] MEDS: HYDROMORPHONE HCL 0.5 MG/ 0.5 ML SYRINGE IV PRN (19:23)
[2024-02-19] MEDS ORDERED: OXYC-517 PO (21:37)
[2024-02-19] MEDS: NS 500 ML IV ONE (22:26)
[2024-02-19] MEDS: MORPHINE 2 MG/ML 1ML VIAL IV ONE (22:56)
[2024-02-20 00:42] VITALS: BP 141/82; TEMP 98.3; O2SAT 99
[2024-02-20] MEDS: oxyCODONE 5MG TAB PO ONE (00:42)
== END 2024-02-20 00:52 | disposition home or self-care (01) ==
LOC: M ED 15:41
DX: K86.1 Other chronic pancreatitis (principal); I10 Essential (primary) hypertension; F10.10 Alcohol abuse, uncomplicated; Z88.8 Allergy status to other drugs, medicaments and biological substances; Z79.2 Long term (current) use of antibiotics; Z79.4 Long term (current) use of insulin; Z79.899 Other long term (current) drug therapy
CPT/HCPCS: 76705; 80048; 80076; 83690; 85025; 96361; 96374; 96375; 99284; J1170; J2405

== ENCOUNTER 2024-03-05 06:19 | Emergency (ER) | payer OTHER ==
[~2024-03-05] VITALS: Ht 162.6 cm; Wt 75.0 kg
[~2024-03-05 06:19] MED LIST changes: +OXYC-517 PO
[2024-03-05] MEDS: NORCO, ANEXSIA 5/325MG TABLET (HYDROcodone/ACETAMINOPHEN) PO ONE (08:58)
[2024-03-05 09:13] VITALS: BP 135/82; TEMP 96.9; O2SAT 97
== END 2024-03-05 09:18 | disposition home or self-care (01) ==
LOC: M ED 06:19
DX: S93.491A Sprain of other ligament of right ankle, initial encounter (principal); Y92.9 Unspecified place or not applicable; Y93.9 Activity, unspecified; Y99.9 Unspecified external cause status; W10.8XXA Fall (on) (from) other stairs and steps, initial encounter; I10 Essential (primary) hypertension; E11.9 Type 2 diabetes mellitus without complications; Z88.8 Allergy status to other drugs, medicaments and biological substances; Z79.2 Long term (current) use of antibiotics; Z79.4 Long term (current) use of insulin; Z79.899 Other long term (current) drug therapy

== ENCOUNTER 2025-05-18 05:05 | Emergency (ER) | payer OTHER ==
[~2025-05-18] VITALS: Ht 162.6 cm; Wt 65.9 kg
[~2025-05-18 05:05] MED LIST changes: -NOVOINJ3 SC; +NOVOINJ3 SUBQ
[2025-05-18] MEDS: NS (Normal Saline) 0.9% 1,000 ML IV ONE ×2 (05:54→08:31)
[2025-05-18] MEDS: MORPHINE 2 MG/ML 1 ML VIAL IV PRN (05:55)
[2025-05-18 06:18] LABS: BASO # 0.0 10^3/uL (0.0-0.2); BASO % 0.3 % (0.0-1.0); EOS # 0.0 10^3/uL (0.0-0.5); EOS % 0.0 % (0.0-3.0); LYMPH # 0.5 10^3/uL (1.5-5.0); LYMPH % 4.5 % (24.0-44.0); MONO # 1.1 10^3/uL (0.0-0.8); MONO % 10.7 % (2.0-8.0); NEUTROPHILS # 8.9 10^3/uL (1.5-8.5); NEUTROPHILS % 83.8 % (36.0-66.0); PLATELET COUNT, AUTOMATED 120 10^3/uL (150-450)
[2025-05-18] MEDS: MORPHINE 4 MG/ML 1 ML VIAL IV PRN (06:28)
[2025-05-18] MEDS ORDERED: ISOVUE-370 76% 100 ML VIAL As Ordered ONE (06:36)
[2025-05-18 06:49] LABS: ALT/SGPT 134 U/L (7.0-40); AST/SGOT 276 U/L (<34); CALCIUM LEVEL 9.5 MG/DL (8.5-10.1); CARBON DIOXIDE LEVEL 21 MMOL/L (20-31); CHLORIDE LEVEL 79 MMOL/L (98-107); CREATININE FOR GFR 0.85 MG/DL (0.55-1.30); GLOMERULAR FILTRATION RATE > 90.0 (>60); POTASSIUM SERUM 5.0 MMOL/L (3.5-5.1); SODIUM LEVEL 125 MMOL/L (136-145)
[2025-05-18 06:51] LABS: VENOUS BASE EXCESS -2.2 (-2.0-2.0); VENOUS HCO3 22.0 MMOL/L (23.0-27.0); VENOUS O2 SATURATION 92.8 % (60.0-80.0); VENOUS PARTIAL PRESSURE CO2 36.3 mmHg (38.0-50.0); VENOUS PARTIAL PRESSURE O2 68.1 mmHg (30.0-50.0); VENOUS PH 7.400 UNITS (7.330-7.430); VENOUS STANDARD HCO3 22.5 MMOL/L; VENOUS TOTAL CO2 23.1 MMOL/L (24.0-28.0)
[2025-05-18 07:23] LABS: INR 1.83
[2025-05-18] MEDS: HYDROMORPHONE HCL 0.5 MG/0.5 ML SYRINGE IV PRN ×2 (07:23→12:45)
[2025-05-18 07:31] LABS: HCG, SERUM QUALITATIVE NEGATIVE (NEGATIVE)
[2025-05-18 08:00] LABS: CK-MB VALUE MASS 1.6 NG/ML (<3.6)
[2025-05-18 08:01] LABS: CPK CREATINE PHOSPHOKINASE 44.0 U/L (34-145); MB/CK RELATIVE INDEX 3.63 (< OR =4)
[2025-05-18] MEDS: NS 0.9% IV ONE (08:50)
[2025-05-18] MEDS: [UNRECOGNIZED DRUG - OTHER] IV ONE (08:50)
[2025-05-18] MEDS ORDERED: HOME MED LIST COMPLETE! XX SCH (08:55)
[2025-05-18] MEDS ORDERED: HYDROMORPHONE HCL 0.5 MG/0.5 ML SYRINGE IV PRN ×2 (08:55→11:15)
[2025-05-18] MEDS ORDERED: FOLI1TAB11 PO (08:55)
[2025-05-18] MEDS: ONDANSETRON 4MG 2ML VIAL IV ONE (09:31)
[2025-05-18 10:09] LABS: CK-MB VALUE MASS 2.2 NG/ML (<3.6); CPK CREATINE PHOSPHOKINASE 81 U/L (34-145); MB/CK RELATIVE INDEX 2.71 (< OR =4)
[2025-05-18 15:42] VITALS: BP 124/52; TEMP 98.2; O2SAT 97
== END 2025-05-18 15:54 | disposition short-term general hospital (02) ==
LOC: M ED 05:05
DX: K85.90 Acute pancreatitis without necrosis or infection, unspecified (principal); R16.0 Hepatomegaly, not elsewhere classified; R00.0 Tachycardia, unspecified; E11.9 Type 2 diabetes mellitus without complications; I10 Essential (primary) hypertension; F10.10 Alcohol abuse, uncomplicated; F43.10 Post-traumatic stress disorder, unspecified; F41.9 Anxiety disorder, unspecified; F32.A Depression, unspecified; Z88.6 Allergy status to analgesic agent; Z79.4 Long term (current) use of insulin; Z79.899 Other long term (current) drug therapy
CPT/HCPCS: 71045; 74174; 74181; 80047; 80048; 80076; 82077; 82550; 82553; 82803; 83605; 83690; 84484; 84703; 85025; 85384; 85610; 85730; 86850; 86900; 86901; 93005; 93041; 96374; 96375; 96376; 99285; J1171; J2405; Q9967

== ENCOUNTER 2025-08-18 15:05 | Inpatient (IN) | payer OTHER ==
[~2025-08-18] VITALS: Ht 162.6 cm; Wt 59.2 kg
[2025-08-18] MEDS ORDERED: CARV3.12 PO (15:24)
[2025-08-18 16:01] LABS: BASO # 0.1 10^3/uL (0.0-0.2); BASO % 0.7 % (0.0-1.0); EOS # 0.0 10^3/uL (0.0-0.5); EOS % 0.4 % (0.0-3.0); LYMPH # 1.1 10^3/uL (1.5-5.0); LYMPH % 15.0 % (24.0-44.0); MONO # 0.4 10^3/uL (0.0-0.8); MONO % 6.3 % (2.0-8.0); NEUTROPHILS # 5.4 10^3/uL (1.5-8.5); NEUTROPHILS % 77.2 % (36.0-66.0); PLATELET COUNT, AUTOMATED 115 10^3/uL (150-450)
[2025-08-18 16:45] LABS: ALT/SGPT 94 U/L (7.0-40); AST/SGOT 159 U/L (<34)
[2025-08-18 17:04] LABS: HCG, SERUM QUALITATIVE NEGATIVE (NEGATIVE)
[2025-08-18] MEDS ORDERED: ISOVUE-370 76% 100 ML VIAL As Ordered ONE (17:19)
[2025-08-18] MEDS: ONDANSETRON 4MG/2ML VIAL IV ONE (17:33)
[2025-08-18] MEDS: MORPHINE 4 MG/ML 1 ML VIAL IV PRN (17:33)
[2025-08-18 18:14] LABS: INR 1.72
[2025-08-18] MEDS: NS (Normal Saline) 0.9% 1,000 ML IV ONE (20:37)
[2025-08-18] MEDS: HYDROMORPHONE HCL 0.5 MG/0.5 ML SYRINGE IV PRN ×2 (20:38→23:35)
[2025-08-18] MEDS ORDERED: ATOR1TAB19 PO (21:14)
[2025-08-18] MEDS ORDERED: MOM 30 ML SUSPENSION UDC PO PRN (21:15)
[2025-08-18] MEDS ORDERED: HOME MED LIST COMPLETE! XX SCH (21:15)
[2025-08-18] MEDS ORDERED: ACETAMINOPHEN 325 MG TAB PO PRN (21:15)
[2025-08-18] MEDS ORDERED: GLUCOSE 4 GM CHEW PO PRN (21:15)
[2025-08-18 21:24] LABS: KETONE, URINE AUTO RFX 1+ mg/dL (NEGATIVE); LEUKOCYTE ESTERASE UR AUTO RFX NEGATIVE (NEGATIVE); MUCUS, URINE RFX SMALL (NEGATIVE); NITRITE, URINE AUTO RFX NEGATIVE (NEGATIVE); RBC, URINE AUTO RFX 2 /HPF (0-3); SQUAM EPITHELIAL CELL UR AURFX 12 /HPF (0-6); WBC, URINE AUTO RFX 2 /HPF (0-3)
[2025-08-18] MEDS: NS (Normal Saline) 0.9% 1,000 ML IV SCH (22:13)
[2025-08-19] VITALS (9 sets, daily range): BP systolic 96–138; BP diastolic 51–77; TEMP 97.2–98.5; O2SAT 95–99
[2025-08-19] MEDS: INSULIN LISPRO (NovoLOG) PER UNIT SC SCH (00:29)
[2025-08-19] MEDS: THIAMINE 100 MG TAB PO SCH (02:43)
[2025-08-19] MEDS: ONDANSETRON 4MG/2ML VIAL IV PRN (04:14)
[2025-08-19 07:57] LABS: BASO # 0.0 10^3/uL (0.0-0.2); BASO % 0.4 % (0.0-1.0); EOS # 0.0 10^3/uL (0.0-0.5); EOS % 0.4 % (0.0-3.0); LYMPH # 0.9 10^3/uL (1.5-5.0); LYMPH % 13.5 % (24.0-44.0); MONO # 0.7 10^3/uL (0.0-0.8); MONO % 10.5 % (2.0-8.0); NEUTROPHILS # 5.2 10^3/uL (1.5-8.5); NEUTROPHILS % 74.9 % (36.0-66.0)
[2025-08-19 08:25] LABS: ALT/SGPT 74 U/L (7.0-40); AST/SGOT 129 U/L (<34); CALCIUM LEVEL 8.2 MG/DL (8.5-10.1); CARBON DIOXIDE LEVEL 28 MMOL/L (20-31); CHLORIDE LEVEL 101 MMOL/L (98-107); CREATININE FOR GFR 0.53 MG/DL (0.55-1.30); GLOMERULAR FILTRATION RATE > 90.0 (>60); MAGNESIUM LEVEL 1.1 MG/DL (1.8-2.4); POTASSIUM SERUM 3.8 MMOL/L (3.5-5.1); SODIUM LEVEL 138 MMOL/L (136-145); TRIGLYCERIDES LEVEL 142 MG/DL (<150)
[2025-08-19] MEDS: FOLIC ACID 1 MG TAB PO SCH (08:32)
[2025-08-19] MEDS: PANTOPRAZOLE 40MG VIAL IV SCH (08:33)
[2025-08-19] MEDS: MULTIVITAMINS/MINERALS THERAP 1 TAB PO SCH (08:33)
[2025-08-19 08:49] LABS: PLATELET COUNT, AUTOMATED 88 10^3/uL (150-450)
[2025-08-19] MEDS ORDERED: ENOXAPARIN 40 MG/0.4 ML SYRINGE (J1650 PER 10MG) SC SCH (09:00)
[2025-08-19] MEDS: HYDROMORPHONE HCL 0.5 MG/0.5 ML SYRINGE IV ONE (09:31)
[2025-08-19] MEDS: MAG SULF 1GM/100ML (MAG RUN) 1 GM in IV 1 EA IV SCH (09:31)
[2025-08-19] MEDS: OXAZEPAM 10MG CAP PO SCH (14:34)
[2025-08-19] MEDS: LR 1,000 ML IV SCH (14:34)
[2025-08-19] MEDS: DEXTROSE 50% (25 GM/50 ML) VIAL IV STA (14:49)
[2025-08-19] MEDS: GLUCAGON INJ 1 MG VIAL SC PRN (14:56)
[2025-08-19] MEDS: D5W/LR 1,000 ML IV SCH (15:29)
[2025-08-20] VITALS (13 sets, daily range): BP systolic 104–139; BP diastolic 57–75; TEMP 97.2–98.4; O2SAT 92–100
[2025-08-20 06:11] LABS: BASO # 0.0 10^3/uL (0.0-0.2); BASO % 0.7 % (0.0-1.0); EOS # 0.1 10^3/uL (0.0-0.5); EOS % 1.8 % (0.0-3.0); LYMPH # 1.1 10^3/uL (1.5-5.0); LYMPH % 25.3 % (24.0-44.0); MONO # 0.5 10^3/uL (0.0-0.8); MONO % 11.8 % (2.0-8.0); NEUTROPHILS # 2.7 10^3/uL (1.5-8.5); NEUTROPHILS % 60.2 % (36.0-66.0); PLATELET COUNT, AUTOMATED 85 10^3/uL (150-450)
[2025-08-20 06:31] LABS: INR 1.62
[2025-08-20 06:39] LABS: ALT/SGPT 66 U/L (7.0-40); AST/SGOT 123 U/L (<34); CALCIUM LEVEL 8.2 MG/DL (8.5-10.1); CARBON DIOXIDE LEVEL 30 MMOL/L (20-31); CHLORIDE LEVEL 99 MMOL/L (98-107); CREATININE FOR GFR 0.57 MG/DL (0.55-1.30); GLOMERULAR FILTRATION RATE > 90.0 (>60); MAGNESIUM LEVEL 1.7 MG/DL (1.8-2.4); POTASSIUM SERUM 3.6 MMOL/L (3.5-5.1); SODIUM LEVEL 139 MMOL/L (136-145)
[2025-08-20] MEDS ORDERED: MAGNESIUM OXIDE 400 MG TAB PO SCH (09:00)
[2025-08-20] MEDS ORDERED: ENOXAPARIN 40 MG/0.4 ML SYRINGE (J1650 PER 10MG) SC SCH (09:00)
[2025-08-20] MEDS: HYDROMORPHONE HCL 0.5 MG/0.5 ML SYRINGE IV PRN (09:16)
[2025-08-20] MEDS: MAGNESIUM OXIDE 400 MG TAB PO SCH (10:55)
[2025-08-20] MEDS: HYDROMORPHONE HCL 0.5 MG/0.5 ML SYRINGE IV ONE (11:28)
[2025-08-20] MEDS: INSULIN LISPRO (NovoLOG) PER UNIT SC SCH ×2 (17:01→21:00)
[2025-08-20] MEDS: OXAZEPAM 10MG CAP PO SCH (18:31)
[2025-08-21] VITALS (11 sets, daily range): BP systolic 104–181; BP diastolic 58–87; TEMP 98.1–98.4; O2SAT 97–99
[2025-08-21 05:46] LABS: BASO # 0.0 10^3/uL (0.0-0.2); BASO % 0.6 % (0.0-1.0); EOS # 0.1 10^3/uL (0.0-0.5); EOS % 1.9 % (0.0-3.0); LYMPH # 1.1 10^3/uL (1.5-5.0); LYMPH % 31.4 % (24.0-44.0); MONO # 0.4 10^3/uL (0.0-0.8); MONO % 11.6 % (2.0-8.0); NEUTROPHILS # 2.0 10^3/uL (1.5-8.5); NEUTROPHILS % 54.5 % (36.0-66.0)
[2025-08-21 05:48] LABS: PLATELET COUNT, AUTOMATED 93 10^3/uL (150-450)
[2025-08-21 06:02] LABS: INR 1.6
[2025-08-21 06:10] LABS: ALT/SGPT 65 U/L (7.0-40); AST/SGOT 107 U/L (<34); CALCIUM LEVEL 8.1 MG/DL (8.5-10.1); CARBON DIOXIDE LEVEL 31 MMOL/L (20-31); CHLORIDE LEVEL 100 MMOL/L (98-107); CREATININE FOR GFR 0.48 MG/DL (0.55-1.30); GLOMERULAR FILTRATION RATE > 90.0 (>60); MAGNESIUM LEVEL 1.4 MG/DL (1.8-2.4); POTASSIUM SERUM 3.7 MMOL/L (3.5-5.1); SODIUM LEVEL 137 MMOL/L (136-145)
[2025-08-21] MEDS: LR 1,000 ML IV SCH (07:21)
[2025-08-21] MEDS: MAG SULF 1GM/100ML (MAG RUN) 1 GM in IV 1 EA IV SCH (09:01)
[2025-08-21] MEDS ORDERED: KETOROLAC 30 MG/ML 1 ML VIAL IV ONE (12:40)
[2025-08-21] MEDS: DEXTROSE 50% 50 ML SYRINGE IV PRN (12:42)
[2025-08-21] MEDS: D5W/LR 1,000 ML IV SCH (13:05)
[2025-08-21] MEDS: HYDROMORPHONE HCL 0.5 MG/0.5 ML SYRINGE IV ONE (13:23)
[2025-08-21] MEDS: HYDROMORPHONE HCL 0.5 MG/0.5 ML SYRINGE IV PRN ×2 (17:13→22:16)
[2025-08-22 01:22] VITALS: BP 146/81; TEMP 98.3; O2SAT 100
[2025-08-22 01:34] VITALS: BP 146/81
[2025-08-22 07:18] LABS: BASO # 0.0 10^3/uL (0.0-0.2); BASO % 0.6 % (0.0-1.0); EOS # 0.1 10^3/uL (0.0-0.5); EOS % 1.5 % (0.0-3.0); LYMPH # 1.0 10^3/uL (1.5-5.0); LYMPH % 30.9 % (24.0-44.0); MONO # 0.5 10^3/uL (0.0-0.8); MONO % 14.2 % (2.0-8.0); NEUTROPHILS # 1.7 10^3/uL (1.5-8.5); NEUTROPHILS % 52.5 % (36.0-66.0); PLATELET COUNT, AUTOMATED 112 10^3/uL (150-450)
[2025-08-22 07:38] LABS: INR 1.64
[2025-08-22 07:47] LABS: ALT/SGPT 61 U/L (7.0-40); AST/SGOT 94 U/L (<34); CALCIUM LEVEL 8.6 MG/DL (8.5-10.1); CARBON DIOXIDE LEVEL 29 MMOL/L (20-31); CHLORIDE LEVEL 103 MMOL/L (98-107); CREATININE FOR GFR 0.41 MG/DL (0.55-1.30); GLOMERULAR FILTRATION RATE > 90.0 (>60); MAGNESIUM LEVEL 1.6 MG/DL (1.8-2.4); POTASSIUM SERUM 3.7 MMOL/L (3.5-5.1); SODIUM LEVEL 139 MMOL/L (136-145)
[2025-08-22] MEDS: MAG SULF 1GM/100ML (MAG RUN) 1 GM in IV 1 EA IV SCH (08:46)
[2025-08-22] MEDS: HYDROMORPHONE HCL 0.5 MG/0.5 ML SYRINGE IV PRN (10:23)
[2025-08-22 12:00] VITALS: BP 110/65; TEMP 98.2; O2SAT 98
[2025-08-22 12:43] VITALS: BP 110/65
[2025-08-22] MEDS: HYDROMORPHONE HCL 0.5 MG/0.5 ML SYRINGE IV ONE (16:55)
[2025-08-22 19:47] VITALS: BP 117/71; TEMP 98.2; O2SAT 100
[2025-08-22] MEDS ORDERED: THIAMINE 100 MG TAB PO SCH (21:00)
[2025-08-22 21:06] VITALS: BP 117/71
[2025-08-23 03:20] VITALS: BP 125/82; TEMP 98.2; O2SAT 97
[2025-08-23 03:22] VITALS: BP 125/82
[2025-08-23] MEDS: LORazepam 1 MG TAB PO PRN (03:26)
[2025-08-23 06:24] LABS: BASO # 0.0 10^3/uL (0.0-0.2); BASO % 1.1 % (0.0-1.0); EOS # 0.1 10^3/uL (0.0-0.5); EOS % 1.6 % (0.0-3.0); LYMPH # 1.2 10^3/uL (1.5-5.0); LYMPH % 32.9 % (24.0-44.0); MONO # 0.5 10^3/uL (0.0-0.8); MONO % 14.6 % (2.0-8.0); NEUTROPHILS # 1.8 10^3/uL (1.5-8.5); NEUTROPHILS % 49.5 % (36.0-66.0); PLATELET COUNT, AUTOMATED 134 10^3/uL (150-450)
[2025-08-23 06:48] LABS: ALT/SGPT 57 U/L (7.0-40); AST/SGOT 83 U/L (<34); CALCIUM LEVEL 8.5 MG/DL (8.5-10.1); CARBON DIOXIDE LEVEL 31 MMOL/L (20-31); CHLORIDE LEVEL 100 MMOL/L (98-107); CREATININE FOR GFR 0.50 MG/DL (0.55-1.30); GLOMERULAR FILTRATION RATE > 90.0 (>60); MAGNESIUM LEVEL 1.7 MG/DL (1.8-2.4); POTASSIUM SERUM 3.9 MMOL/L (3.5-5.1); SODIUM LEVEL 137 MMOL/L (136-145)
[2025-08-23 06:56] LABS: INR 1.64
[2025-08-23] MEDS ORDERED: MULTIVITAMINS/MINERALS THERAP 1 TAB PO SCH (09:00)
[2025-08-23] MEDS ORDERED: FOLIC ACID 1 MG TAB PO SCH (09:00)
[2025-08-23 09:01] VITALS: BP 134/86
[2025-08-23] MEDS: MAG SULF 1GM/100ML (MAG RUN) 1 GM in IV 1 EA IV ONE (09:01)
[2025-08-23 12:00] VITALS: BP 119/65; TEMP 98.8; O2SAT 99
[2025-08-23] MEDS ORDERED: OXYC-517 PO (12:37)
[2025-08-23] MEDS ORDERED: ACET-861 PO (12:40)
[2025-08-23] MEDS: HYDROMORPHONE HCL 0.5 MG/0.5 ML SYRINGE IV ONE (14:09)
== END 2025-08-23 15:15 | disposition home or self-care (01) | DRG 439 ==
LOC: M ED 15:05 → M ED INP 21:11 → M MSPAV 08-19 01:52
PROVIDERS: ADMIT Internal Medicine; ATTEND Student in an Organized Health Care Education/Training Program
DX: K85.20 Alcohol induced acute pancreatitis without necrosis or infection (principal); F10.288 Alcohol dependence with other alcohol-induced disorder; D68.4 Acquired coagulation factor deficiency; E11.649 Type 2 diabetes mellitus with hypoglycemia without coma; I10 Essential (primary) hypertension; E83.42 Hypomagnesemia; D69.6 Thrombocytopenia, unspecified; F41.9 Anxiety disorder, unspecified; F43.20 Adjustment disorder, unspecified; K70.30 Alcoholic cirrhosis of liver without ascites; M54.42 Lumbago with sciatica, left side; G89.29 Other chronic pain; K52.9 Noninfective gastroenteritis and colitis, unspecified; Z88.6 Allergy status to analgesic agent; Z79.899 Other long term (current) drug therapy; Z79.4 Long term (current) use of insulin